=== PATIENT | male | born 1935 | race Caucasian/White ===

== ENCOUNTER 2018-08-08 10:21 | Emergency (ER) | payer OTHER ==
[~2018-08-08] VITALS: Ht 172.7 cm; Wt 68.0 kg
[2018-08-08 11:30] LABS: Urine Bacteria NONE SEEN /hpf (None Seen); Urine Blood 2+ /uL (Negative); Urine Specific Gravity 1.006 (1.001-1.035); Urine WBC 2 /hpf (0 - 3)
[2018-08-08 11:42] LABS: Basophils # (auto) 0.1 uL; Basophils % (auto) 0.8 % (0.0-2.0); Eosinophils # (auto) 0.4 uL; Eosinophils % (auto) 4.5 % (0.0-7.0); Hematocrit 42.4 % (41.0-53.0); Hemoglobin 14.4 g/dL (13.5-17.5); Lymphocytes # (auto) 1.1 uL; Lymphocytes % (auto) 12.1 % (10.0-50.0); Mean Corpuscular Hemoglobin 31.1 pg (28.0-32.0); Mean Corpuscular Hgb Conc. 33.9 g/dL (32.0-36.0); Mean Corpuscular Volume 91.9 fL (80.0-100.0); Monocytes # (auto) 0.6 uL; Monocytes % (auto) 7.3 % (0.0-12.0); Neutrophils # (auto) 6.6 uL; Neutrophils % (auto) 75.3 % (37.0-80.0); Platelet Count (auto) 226 10^3/uL (140-450); Red Blood Cells 4.62 10^6/uL (4.5-5.90); Red Cell Distribution Width 14.9 % (11.8-14.3); White Blood Cell 8.8 10^3/uL (4.4-10.8)
[2018-08-08 12:09] LABS: Albumin 3.9 g/dL (3.4-5.0); Calcium 9.6 mg/dL (8.5-10.1); Potassium 4.4 mmol/L (3.5-5.1)
[2018-08-08 12:11] LABS: Bilirubin, Total 0.5 mg/dL (0.2-1.0); Total Protein 7.8 g/dL (6.4-8.2)
[2018-08-08] MEDS ORDERED: SODIUM CHLORIDE 0.9% 1,000 ML IV ONE (12:16)
[2018-08-08] MEDS ORDERED: TAMSULOSIN HYDROCHLORIDE 0.4 MG CAP PO ONE (12:30)
[2018-08-08 14:57] VITALS: BP 117/54
[2018-08-08 14:57] LABS: Magnesium 2.5 mg/dL (1.6-2.6)
== END 2018-08-08 15:43 | disposition home or self-care (01) ==
LOC: ER 10:21
DX: R33.9 Retention of urine, unspecified (principal); R31.9 Hematuria, unspecified; E03.9 Hypothyroidism, unspecified; E11.9 Type 2 diabetes mellitus without complications; I10 Essential (primary) hypertension; Z90.89 Acquired absence of other organs
CPT/HCPCS: 36415; 71046; 80053; 81001; 83690; 83735; 84443; 85025; 93005

== ENCOUNTER → 2019-02-20 | Emergency (ER) | payer OTHER | END | disposition left against medical advice (07) | LOC: ER 19:23 | DX: R32 Unspecified urinary incontinence (principal); Z53.21 Procedure and treatment not carried out due to patient leaving prior to being seen by health care provider ==

== ENCOUNTER 2019-12-27 15:55 | Inpatient (IN) | payer OTHER ==
[~2019-12-27] VITALS: Ht 172.7 cm; Wt 61.0 kg
[2019-12-27 16:47] LABS: Basophils # (auto) 0 10 ^3/uL (0-0.2); Basophils % (auto) 0.2 % (0.0-2.0); Eosinophils # (auto) 0 10 ^3/uL (0-0.8); Hematocrit 36.5 % (41.0-53.0); Hemoglobin 12.3 g/dL (13.5-17.5); Lymphocytes # (auto) 0.1 10 ^3/uL (0.4-5.4); Lymphocytes % (auto) 0.9 % (10.0-50.0); Mean Corpuscular Hemoglobin 30.1 pg (28.0-32.0); Mean Corpuscular Hgb Conc. 33.8 g/dL (32.0-36.0); Mean Corpuscular Volume 88.9 fL (80.0-100.0); Monocytes # (auto) 0 10 ^3/uL (0-1.3); Monocytes % (auto) 0.2 % (0.0-12.0); Neutrophils # (auto) 11.4 10 ^3/uL (1.6-8.6); Neutrophils % (auto) 98.7 % (37.0-80.0); Platelet Count (auto) 227 10^3/uL (140-450); Red Blood Cells 4.11 10^6/uL (4.5-5.90); Red Cell Distribution Width 15.6 % (11.8-14.3); White Blood Cell 11.5 10^3/uL (4.4-10.8)
[2019-12-27 17:05] LABS: Albumin 2.9 g/dL (3.4-5.0); Calcium 8.4 mg/dL (8.5-10.1)
[2019-12-27 17:09] LABS: Bilirubin, Total 0.7 mg/dL (0.2-1.0); Total Protein 7.3 g/dL (6.4-8.2)
[2019-12-27] MEDS ORDERED: ASPirin-EC 81 mg tab PO ONE (18:15)
[2019-12-27] MEDS ORDERED: cefTRIAXone 1GM/50ML D5W 50 ML IV ONE (18:15)
[2019-12-27] MEDS ORDERED: ACETAMINOPHEN 325 MG TAB PO ONE (18:45)
[2019-12-27 19:05] LABS: INR 1.22 (0.9-1.15); Partial Thromboplastin Time 30.2 sec (23.64-32.05)
[2019-12-27] MEDS ORDERED: FUROSEMIDE 20 MG/2 ML VIAL IV ONE (19:15)
[2019-12-27] MEDS ORDERED: NITROGLYCERIN 0.2MG/HR TOPICAL PATCH TD ONE (19:15)
[2019-12-27] MEDS ORDERED: hydrALAZINE HCL 20 MG/ML VL IV PRN (19:15)
[2019-12-27] MEDS ORDERED: AZITHROMYCIN 250 MG TAB PO ONE (19:15)
[2019-12-27] MEDS ORDERED: ACETAMINOPHEN 500 MG TAB PO PRN (19:15)
[2019-12-27] MEDS ORDERED: MORPHINE SULF INJ 2 MG/ML SYRINGE 1ML IV PRN ×2 (19:15)
[2019-12-27] MEDS ORDERED: ONDANSETRON HCL 4 MG/2 ML VIAL IV PRN (19:15)
[2019-12-27] MEDS ORDERED: NITROGLYCERIN 0.4 MG SL TAB SL PRN (19:15)
[2019-12-27] MEDS ORDERED: DEXTROSE (50%) 50ML SYRG IV PRN (19:15)
[2019-12-27 19:44] LABS: Lactic Acid w/Reflex 4.4 mmol/L (0.4-2.0)
[2019-12-27 19:53] LABS: CRP High Sensitivity 7.76 mg/dL (< 0.3)
[2019-12-27 20:13] VITALS: BP 130/70
[2019-12-27] MEDS ORDERED: IOHEXOL 350 MG/ML 100ML IJ ONE (21:07)
[2019-12-27] MEDS: InsuLIN REG 1unit/0.01ml Soln (100units/ml) SC SCH (22:53)
[2019-12-27] MEDS: METOPROLOL TARTRATE 25 MG TAB PO SCH (22:53)
[2019-12-27] MEDS: ATORVASTATIN 20 MG TAB PO SCH (22:53)
[2019-12-27] MEDS: ACCU-CHEK COMFORT CURVE STRIP VI SCH (22:54)
[2019-12-28] VITALS (41 sets, daily range): BP systolic 60–143; BP diastolic 37–76
[2019-12-28] MEDS: IPRATROPIUM BROM 0.5 MG/2.5ML INH SOL NEB PRN (01:35)
[2019-12-28] MEDS: LEVALBUTEROL HCL 1.25 MG/3 ML NEB NEB SCH ×3 (01:35→06:00)
[2019-12-28] MEDS ORDERED: ENOXAPARIN SOD 100 MG/1 ML SYRINGE SC ONE (02:45)
[2019-12-28] MEDS ORDERED: ACETAMINOPHEN 325 MG TAB PO ONE (06:00)
[2019-12-28] MEDS ORDERED: IPRATROPIUM BROM 0.5 MG/2.5ML INH SOL ONE (06:31)
[2019-12-28 06:59] LABS: Hematocrit 35.3 % (41.0-53.0); Hemoglobin 11.6 g/dL (13.5-17.5); Mean Corpuscular Hemoglobin 29.3 pg (28.0-32.0); Mean Corpuscular Hgb Conc. 32.8 g/dL (32.0-36.0); Mean Corpuscular Volume 89.3 fL (80.0-100.0); Platelet Count (auto) 159 10^3/uL (140-450); Red Blood Cells 3.95 10^6/uL (4.5-5.90)
[2019-12-28 07:10] LABS: Basophils % (manual) 0 (0.0-2.0); Blast Cells 0; Eosinophils % (manual) 0 (0-7); Metamyelocytes % 0; Myelocytes % 0; Promyelocytes % 0; Reactive Lymphocytes 0
[2019-12-28 07:15] LABS: INR 1.4 (0.9-1.15); Partial Thromboplastin Time 43.4 sec (23.64-32.05)
[2019-12-28] MEDS ORDERED: LEVALBUTEROL HCL 1.25 MG/3 ML NEB NEB PRN (07:15)
[2019-12-28 07:17] LABS: BUN/Creatinine Ratio 27.8; Calcium 8.4 mg/dL (8.5-10.1); Potassium 3.5 mmol/L (3.5-5.1)
[2019-12-28] MEDS ORDERED: ALBUMIN 5% 250 ML IV ONE (07:30)
[2019-12-28 07:43] LABS: Band Neutrophils % (manual) 4; Lymphocytes % (manual) 3 (10.0-50.0); Monocytes % (manual) 5 (0-12)
[2019-12-28] MEDS: ACCU-CHEK COMFORT CURVE STRIP VI SCH ×4 (08:08→21:53)
[2019-12-28] MEDS: NOREPINEPHRINE 8 MG/250ML KIT 250 ML IV SCH ×2 (08:24→22:42)
[2019-12-28] MEDS: InsuLIN REG 1unit/0.01ml Soln (100units/ml) SC SCH ×4 (08:43→21:54)
[2019-12-28] MEDS: METOPROLOL TARTRATE 25 MG TAB PO SCH ×2 (10:00→22:00)
[2019-12-28] MEDS: LISINOPRIL 10 MG TAB PO SCH (10:00)
[2019-12-28] MEDS: cefTRIAXone 1GM/50ML D5W 50 ML IV SCH (10:05)
[2019-12-28] MEDS: SODIUM CHLORIDE 0.9% 1,000 ML IV SCH (10:05)
[2019-12-28] MEDS: ASPirin-EC 81 mg tab PO SCH (10:43)
[2019-12-28] MEDS: AZITHROMYCIN 250 MG TAB PO SCH (10:43)
[2019-12-28] MEDS: FAMOTIDINE 20 MG TAB PO SCH (10:43)
--- NOTE | 2019-12-28 11:20 | NUR ---
PT RECEIVED ON UNIT PT IS AWAKE AND ALERT X 4:PERSON, PLACE, TIME, SITUATION. PT DOES NOT HAVE ASHBY CATHETER IN DUE TO UNSUCCESSFUL ATTEMPTS PER ER. WILL TRY TO INSERT CATHETER. VS: 98.1 F TEMP, HR 88, RR 25, BP 111/58, 95%O2SAT ON 4L NASAL CANULA. BOWEL SOUNDS ACTIVE, LUMG SOUNDS WITH CRACKLES AND DIMINISHED IN ALL LUNG BLAKE, PULSES PALPABLE IN ALL EXTREMITIES, CAP REFILL LESS THAN 3 SECONDS, PUPILS 2 BRISK AND REACTIVE. BED IN LOWEST POSITION, CALL LIGHT WITHIN REACH. NO S/S OF DISTRESS. NO CONCERNS OR QUESTIONS AT THIS TIME
--- NOTE | 2019-12-28 12:25 | NUR ---
DR. PAULINO CALLED FOR ELEVATED TROPONIN
--- NOTE | 2019-12-28 12:40 | NUR ---
CONVEYOR CONSOLE OPERATOR AT BEDSIDE
--- NOTE | 2019-12-28 12:40 | NUR ---
DR. PAULINO AT BEDSIDE ORDERS RECEIVED
--- NOTE | 2019-12-28 15:25 | NUR ---
DR. CHE AT BEDSIDE ORDERS RECEIVED
--- NOTE | 2019-12-28 16:30 | NUR ---
RHYTHM CHANGE EKG DONE. AUGUSTO OCHOA
--- NOTE | 2019-12-28 16:40 | NUR ---
SCOTT OCHOA RETURNED CALL. ORDERS RECEIVED
--- NOTE | 2019-12-28 17:00 | NUR ---
CUIDET CATHETER INSERTION ATTEMPT UNSUCCESSFUL. COULD NOT ADVANCE. SMALL AMOUNT OF BLOOD FROM URETHRAL OPENING. WILL CONTINUE TO MONITOR AND LET PHYSICIAN KNOW.
--- NOTE | 2019-12-28 17:02 | NUR ---
SWALLOW EVALUATED. PATIENT HAS ONE SINGLE TOOTH LOWER, NO DENTITION UPPER. PATIENT ABLE TO TOLERATE PUREE DIET TEXTURE WITH NECTAR THICKENED LIQUIDS WITH NO OVERT SIGNS OR SYMPTOMS OF ASPIRATION. PATIENT COUGHED ON TRIAL OF THIN LIQUIDS. NURSING NOTIFIED.
[2019-12-28] MEDS ORDERED: AMIODARONE HCL 150 MG in D5W 5% 100 ML IV ONE (17:15)
--- NOTE | 2019-12-28 18:15 | NUR ---
Respiratory note: PT ASSESSED FOR PRN MED NEB TX. HR 107, RR 20, SPO2 96% ON 4L NC. NO SIGNS OF ANY RESPIRATORY DISTRESS NOTED. ADVISED PT TO CALL IF TX IS NEEDED.
--- NOTE | 2019-12-28 18:30 | NUR ---
BUFFING TURNER AND COUNTER GABRIELA AWARE OF ELEVATED TROPONIN
[2019-12-28] MEDS: FUROSEMIDE 20 MG/2 ML VIAL IV SCH (18:31)
--- NOTE | 2019-12-28 18:40 | NUR ---
SCOTT OCHOA AT BEDSIDE ORDERS RECEIVED
--- NOTE | 2019-12-28 18:40 | NUR ---
ASHBY CATHETER ATTEMPT BY PAPER CUTTER GABRIELA NOT ABLE TO INSERT WILL PLACE UROLOGY CONSULT
--- NOTE | 2019-12-28 19:00 | NUR ---
Opening note assumed care of patient at this time. Report received from day shift rn. POC reviewed. Head to toe assessment complete, see intervention spreadsheet for complete details. Received pt alert and oriented, able to follow commands. IV sites benign.Pt denies pain. VSS. Received pt in A-fib/flutter. Received pt on levophed at 12 mcg. Bed locked and in lowest position. Safety precautions in place. Will monitor pt carefully.
--- NOTE | 2019-12-28 19:35 | NUR ---
CLOSING NOTE SHIFT REPORT GIVEN AND CARE ENDORSED TO TATIANNA BALLARD
--- NOTE | 2019-12-28 19:35 | NUR ---
Dr Franklin at bedside
--- NOTE | 2019-12-28 20:15 | NUR ---
Attempt to place garcia Bladder scanner showed approx. 400 cc of urine. Unable to place garcia due to resistance and trauma to area. Urology consult placed. Will continue to monitor.
[2019-12-28] MEDS: ATORVASTATIN 20 MG TAB PO SCH (21:53)
[2019-12-28] MEDS: ENOXAPARIN SOD 80 MG/0.8ML SYRINGE SC SCH (22:06)
--- NOTE | 2019-12-28 23:51 | NUR ---
Pt urinating in chucks around groin area. Very concentrated, hematuria noted.
[2019-12-29] VITALS (57 sets, daily range): BP systolic 90–137; BP diastolic 46–79
[2019-12-29] MEDS: SODIUM CHLORIDE 0.9% 1,000 ML IV SCH ×3 (01:13→14:50)
--- NOTE | 2019-12-29 02:02 | NUR ---
Bed bath Pt given complete bed bath with linen change. Pt tolerated well. Pt able to assist with turns. VSS. pt denies pain. Will continue with care.
[2019-12-29 04:02] LABS: Mean Corpuscular Hemoglobin 29.6 pg (28.0-32.0)
[2019-12-29 04:03] LABS: Hematocrit 33.2 % (41.0-53.0); Mean Corpuscular Hgb Conc. 33.2 g/dL (32.0-36.0); Mean Corpuscular Volume 89.1 fL (80.0-100.0); Platelet Count (auto) 111 10^3/uL (140-450); Red Blood Cells 3.73 10^6/uL (4.5-5.90); Red Cell Distribution Width 16.1 % (11.8-14.3)
[2019-12-29 04:17] LABS: Calcium 7.9 mg/dL (8.5-10.1); Potassium 3.6 mmol/L (3.5-5.1)
[2019-12-29 04:20] LABS: BUN/Creatinine Ratio 33.9
[2019-12-29 04:24] LABS: White Blood Cell 31.9 10^3/uL (4.4-10.8)
[2019-12-29 04:26] LABS: Basophils % (manual) 0 (0.0-2.0); Blast Cells 0; Eosinophils % (manual) 0 (0-7); Metamyelocytes % 0; Myelocytes % 0; Promyelocytes % 0; Reactive Lymphocytes 0
[2019-12-29] MEDS: FUROSEMIDE 20 MG/2 ML VIAL IV SCH (06:00)
[2019-12-29 06:01] LABS: Band Neutrophils % (manual) 34; Monocytes % (manual) 3 (0-12)
[2019-12-29 06:03] LABS: Lymphocytes % (manual) 6 (10.0-50.0)
[2019-12-29] MEDS: InsuLIN REG 1unit/0.01ml Soln (100units/ml) SC SCH ×4 (07:00→22:10)
[2019-12-29] MEDS: ACCU-CHEK COMFORT CURVE STRIP VI SCH ×4 (07:00→22:09)
--- NOTE | 2019-12-29 07:10 | NUR ---
OPENING NOTE SHIFT REPORT GET BACK AND ASSUMED CARE OF PT FROM TATIANNA BALLARD
[2019-12-29] MEDS: cefTRIAXone 1GM/50ML D5W 50 ML IV SCH (08:33)
--- NOTE | 2019-12-29 10:00 | NUR ---
DR. CHE AT BEDSIDE ORDERS RECEIVED
[2019-12-29] MEDS: ASPirin-EC 81 mg tab PO SCH (10:01)
[2019-12-29] MEDS: FAMOTIDINE 20 MG TAB PO SCH (10:02)
[2019-12-29] MEDS: AZITHROMYCIN 250 MG TAB PO SCH (10:02)
[2019-12-29] MEDS: METOPROLOL TARTRATE 25 MG TAB PO SCH ×2 (10:02→22:00)
[2019-12-29] MEDS: ENOXAPARIN SOD 80 MG/0.8ML SYRINGE SC SCH ×2 (10:02→22:09)
[2019-12-29] MEDS: LISINOPRIL 10 MG TAB PO SCH (10:09)
[2019-12-29] MEDS ORDERED: ERTAPENEM SOD INJ 0.5 GM in SODIUM CHL 0.9% 50 ML IV ONE (10:30)
--- NOTE | 2019-12-29 11:00 | NUR ---
MATERIAL CONTROL ASSOCIATE AT BEDSIDE TO DO KIDNEY ULTRASOUND
[2019-12-29] MEDS: NICOTINE 14 MG/24HR TOPICAL PATCH TD SCH (11:03)
--- NOTE | 2019-12-29 12:50 | NUR ---
BLADDER SCAN DONE SHOWS GREATER THAN 200ML. WILL ATTEMPT TO TRY TO STRAIGHT CATH.
--- NOTE | 2019-12-29 13:00 | NUR ---
STRAIGHT CATH ATTEMPTED BUT WAS UNSUCCESSFUL. WILL PLACE CONDOM CATH AT TIS TIME
--- NOTE | 2019-12-29 13:00 | NUR ---
CONDOM CATH PLACED SO THAT WE CAN TRY TO GET SOME KIND OF URINE OUTPUT FROM PATIENT. WILL CONTINUE TO MONITOR
--- NOTE | 2019-12-29 14:46 | NUR ---
WOUND CARE NOTE: Wound care into see patient per wound care request regarding low Amando score of 12 and skin integrity issue that are noted present on admission. Bedside nurse took photograph of patient's skin issue upon admission for reference. Patient is 84 years old male with admitting diagnosis of Acute Hypoxic Resp Failure. Patient is resting in ICU bed in Rm. 102. Patient is awake, alert and able to verbalize needs and follow direction. Patient is in no stated pain at this time and he appears to be in no pain using Ashraf Valverde Faces Pain Scale. Skin assessment done with the assistance of patient's nurse, ELIO Che. Noted 0.6x0.5cm dry, intact scabbed abrasion to patient's L elbow, gloria wound is bright red, purple ecchymosis, no drainage/odor noted,left open to air. Patient states he does not remember how he got the scab to his left elbow. Intact pink scar tissue noted to his Rt lower buttock with mild redness but skin blanches quickly. Patient is incontinent of urine and wet the care pad. Gloria care given and applied Z Guard cream. New disposable care pad placed. Repositioned patient for comfort facing his right side, redistributed pressure points with pillows. Patient tolerated well. RECOMMENDATION: Nursing to continue with BID/PRN cleaning and application Z Guard cream to sacral, buttocks per MD order, frequent turning and repositioning schedule as condition permits, redistribute pressure points with pillows,elevate heels on pillows,frequent gloria check/care,keep clean and dry, continue monitoring by wound care while Amando score is <18. Addendum: 12/29/19 at 1549 by Pita Pike RN Amended: Links added.
[2019-12-29] MEDS ORDERED: OMEP-260 PO (16:49)
[2019-12-29] MEDS ORDERED: DOCU-94 PO (16:49)
[2019-12-29] MEDS ORDERED: LEVO25TA6 PO (16:49)
[2019-12-29] MEDS ORDERED: GABA100C9 PO (16:49)
[2019-12-29] MEDS ORDERED: SIMV-8 PO (16:49)
[2019-12-29] MEDS ORDERED: ENAL2.5T PO (16:49)
[2019-12-29] MEDS ORDERED: MELO1TAB73 PO (16:49)
--- NOTE | 2019-12-29 16:58 | NUR ---
assessment Patient is a 84 year old male who is alert and oriented. Per patients sherie Fajardo prior to admission patient lived home with family and functioned with assistance. Patient will return home with family on discharge. Patient has a fww for home use. Patients PCP is Dr Blue. Patient has a consult for home health for PT and safety. Patients sherie Fajardo agrees to home health. Patient does not has an advanced directive or POA. Scotty verbalized understanding and agreed to discharge plan home. Addendum: 12/29/19 at 1702 by Ly ESCOBEDO Amended: Links added.
--- NOTE | 2019-12-29 19:30 | NUR ---
Opening Shift Note Received pt laying in bed in semi-fowlers position. Pt alert and oriented times four. pt incontinent of urine and stool. Per report, multiple attempts have been made to place garcia and unable to succeed. No condom cath on pt per assessment. Full assessment done see interventions. Pt on 2 lpm nasal cannula. no s/s of distress noted at this time. Call light within reach. bed locked in lowest position. VSS.
--- NOTE | 2019-12-29 19:39 | NUR ---
CLOSING NOTE SHIFT REPORT GIVEN AND CARE ENDORSED TO KWAKU BALLARD
--- NOTE | 2019-12-29 19:55 | NUR ---
Respiratory note: PT RECIEVED ON NC4L. TITRATED TO 3LPM, PT TOLERATING WELL. PT IN NO RESP DISTRESS AT THIS TIME. PT AWAKE AND ALERT. SPO2 97%, HR 86, RR 22. BS CLR IN UPPER LOBES AND DIMINISHED WITH FAINT CRACKLES AT BASES. NO PRN TX INDICATED AT THIS TIME. WILL CONTINUE TO MONITOR PT T/O SHIFT.
--- NOTE | 2019-12-29 20:30 | NUR ---
ELIMINATION cleansed pt of urine and stool. New chucks applied. Barrier cream applied to skin to keep skin integrity intact from constant exposure to moisture.
[2019-12-29] MEDS: MEROPENEM 1GM IVPB 100 ML IV SCH (22:08)
[2019-12-29] MEDS: ATORVASTATIN 20 MG TAB PO SCH (22:09)
[2019-12-30] VITALS (13 sets, daily range): BP systolic 104–136; BP diastolic 52–78
[2019-12-30 03:47] LABS: Basophils # (auto) 0 10 ^3/uL (0-0.2); Basophils % (auto) 0.2 % (0.0-2.0); Eosinophils # (auto) 0.2 10 ^3/uL (0-0.8); Eosinophils % (auto) 1.3 % (0.0-7.0); Hematocrit 33.7 % (41.0-53.0); Lymphocytes # (auto) 0.7 10 ^3/uL (0.4-5.4); Mean Corpuscular Hemoglobin 29.1 pg (28.0-32.0); Mean Corpuscular Hgb Conc. 32.8 g/dL (32.0-36.0); Mean Corpuscular Volume 88.8 fL (80.0-100.0); Monocytes # (auto) 0.6 10 ^3/uL (0-1.3); Monocytes % (auto) 3.1 % (0.0-12.0); Neutrophils # (auto) 16.4 10 ^3/uL (1.6-8.6); Neutrophils % (auto) 91.4 % (37.0-80.0); Platelet Count (auto) 104 10^3/uL (140-450); Red Blood Cells 3.79 10^6/uL (4.5-5.90); Red Cell Distribution Width 16.3 % (11.8-14.3)
[2019-12-30 04:08] LABS: BUN/Creatinine Ratio 44.8; Calcium 7.6 mg/dL (8.5-10.1); Potassium 4.2 mmol/L (3.5-5.1)
--- NOTE | 2019-12-30 05:00 | NUR ---
CARES PT INCONTINENT OF URINE AND BM THROUGHOUT THE NIGHT. CONTINUOUSLY CHANGED AND CLEANED. BARRIER CREAM APPLIED TO SKIN. PT TOLERATED WELL. NO COMPLAINTS OF PAIN. NO S/S OF DISTRESS.
[2019-12-30] MEDS: InsuLIN REG 1unit/0.01ml Soln (100units/ml) SC SCH ×4 (06:22→21:06)
[2019-12-30] MEDS: ACCU-CHEK COMFORT CURVE STRIP VI SCH ×4 (06:22→21:06)
--- NOTE | 2019-12-30 07:30 | NUR ---
REPORT REPORT RECEIVED FROM MARK RNKWAKU. BEDSIDE CHECK DONE AND PT STABLE WITH NO C/O PAIN.
[2019-12-30] MEDS: NOREPINEPHRINE 8 MG/250ML KIT 250 ML IV SCH (08:00)
--- NOTE | 2019-12-30 08:25 | NUR ---
ASSESSMENT WOKE PT FOR ASSESSMENT. A/O X4, WEAK BUT ABLE TO HELP TURN IN BED. MOVES ALL EXTREMITIES AND FOLLOWS SIMPLE COMMANDS. LUNGS CLEAR AND DIMINISHED THROUGHOUT. O2 AT 3 L/M VIA NC WITH O2 SAT OF 98%. TELE SR [address] ELEVATION IN LEAD 1. PALPABLE PULSES TO ALL EXTREMITIES. ABD SOFT WITH + BOWEL SOUNDS. INCONTINENT OF URINE AND SMALL BROWN SM. PERICARE GIVEN AND CAIR PAD CHANGED. APPLIED Z GUARD AND PROTECTIVE CREAM TO SCROTUM AND MAKENZIE ANAL AREA TO PROTECT SKIN. PROTECTIVE OPTIFOAM DRESSING TO SACRUM, SKIN UNDER CLEAR WITH OLD SCAR TO THE RIGHT BUTTOCK. ALSO WITH SMALL SCAB TO THE LEFT ELBOW. TURNED FOR COMFORT TO HIS RIGHT SIDE. RAILS UP X4 AND BED IN LOW POSITION FOR PT SAFETY. CONTINUE TO MONITOR.
[2019-12-30] MEDS: SODIUM CHLORIDE 0.9% 1,000 ML IV SCH (09:22)
--- NOTE | 2019-12-30 09:36 | NUR ---
MD/PHONE PAGED AND SPOKE WITH DR CHE TO NOTIFY OF PHARMACY CONCERNS REGARDING DROPPING PLATELET COUNT, 104 TODAY, AND PT ON LOVENOX 70MG SQ BID. ORDER RECEIVED TO DISCONTINUE LOVENOX.
[2019-12-30] MEDS ORDERED: ERTAPENEM SOD INJ 0.5 GM in SODIUM CHL 0.9% 50 ML IV SCH (10:00)
[2019-12-30] MEDS: IPRATROPIUM BROM 0.5 MG/2.5ML INH SOL NEB PRN (10:16)
--- NOTE | 2019-12-30 10:30 | NUR ---
LATHE SETUP OPERATOR VISIT PT SEEN AND EXAMINED BY JANNA OCHOA NP. SHE DISCUSSED WITH THE PT THAT SHE IS SCHEDULING HIM FOR A CARDIOLYTE STRESS TEST TODAY. HELD THE PT'S SCHEDULED DOSE OD METOPROLOL PER LATHE SETUP OPERATOR.
[2019-12-30] MEDS: MEROPENEM 1GM IVPB 100 ML IV SCH ×2 (10:33→20:56)
[2019-12-30] MEDS: ASPirin-EC 81 mg tab PO SCH (10:33)
[2019-12-30] MEDS: FAMOTIDINE 20 MG TAB PO SCH (10:34)
[2019-12-30] MEDS: NICOTINE 14 MG/24HR TOPICAL PATCH TD SCH (10:39)
[2019-12-30] MEDS ORDERED: ALBUTEROL SULF 2.5 MG/0.5ML(0.5%) NEB SOLN NEB ONE (10:45)
[2019-12-30] MEDS ORDERED: ADENOSINE 51 MG in GIVE UN-DILUTED 0 ML IV STA (11:28)
--- NOTE | 2019-12-30 11:40 | NUR ---
RECEIVED REPORT FROM ELIO LOPEZ.
--- NOTE | 2019-12-30 11:40 | NUR ---
REPORT REPORT GIVEN TO RECEIVING RNYOSVANY.
[2019-12-30] MEDS: METOPROLOL TARTRATE 25 MG TAB PO SCH ×2 (12:00→20:52)
--- NOTE | 2019-12-30 12:00 | NUR ---
BONI BLACKMAN REP KAYLYNN SOLANOT MICK WOMACK, HERE AND SPOKE WITH THE PT AND HIS SON.
--- NOTE | 2019-12-30 12:05 | NUR ---
PT TRANSFERRED TO FLOOR BED AND CONNECTED TO TELE #20 AND PORTABLE O2 AT 3 L/M VIA NC. PT TRANSPORTED TO ROOM #245B BY CHRIS PABLO, TALISHA. PT ACCOMPANIED BY HIS SON.
--- NOTE | 2019-12-30 12:09 | NUR ---
PATIENT ARRIVED IN ROOM VIA HOSPITAL BED AT THIS TIME.
--- NOTE | 2019-12-30 12:20 | NUR ---
Faxed authorization request for [employer] Life Vest to [facility].
--- NOTE | 2019-12-30 19:40 | NUR ---
Opening Shift Note Assumed care of patient, awake and alert. No S/S of distress/SOB or pain. Instructed on POC and to call for assist PRN, will continue to monitor for changes Q1hr and PRN. Bed alarm on
[2019-12-30] MEDS: ATORVASTATIN 20 MG TAB PO SCH (20:52)
[2019-12-30] MEDS: HYDROcodone-ACET 5/325MG TAB PO PRN (20:53)
--- NOTE | 2019-12-30 20:53 | NUR ---
Pain Management Pt medicated for chronic 7/10 leg pain, medicated with norco per pt request. Will continue to monitor for pain relief
--- NOTE | 2019-12-30 22:16 | NUR ---
Respiratory note: PT RECIEVED ON NC3L. PT IS AWAKE AND RESPONSIVE. NO RESP DISTRESS NOTED. SPO2 95%, HR 82, RR 18, BS CLR T/O. NO PRN TX INDICATED AT THIS TIME. PT AWARE TO CALL FOR TX IF SOB/WHEEZING.
--- NOTE | 2019-12-31 03:54 | NUR ---
Patient linen change Patient given partial bath after urinary incontinence. Skin integrity assessed for any changes. Linens changed. Patient repositioned for comfort.
[2019-12-31 05:18] VITALS: BP 142/86
[2019-12-31] MEDS: ACCU-CHEK COMFORT CURVE STRIP VI SCH ×2 (05:54→17:12)
[2019-12-31] MEDS: InsuLIN REG 1unit/0.01ml Soln (100units/ml) SC SCH ×2 (05:55→17:14)
--- NOTE | 2019-12-31 07:30 | NUR ---
Opening Shift Note RECEIVED REPORT FROM NOC RN. Assumed care of patient, awake and alert. PATIENT ON OXYGEN AT 3 LPM VIA NASAL CANNULA WITH no S/S of distress/SOB or pain. BED IN LOWEST, LOCKED POSITION WITH SIDERAILS UP x2 AND CALL LIGHT WITHIN REACH. Instructed on POC and to call for assist PRN, will continue to monitor for changes Q1hr and PRN.
[2019-12-31 08:43] VITALS: BP 145/77
--- NOTE | 2019-12-31 09:47 | NUR ---
Respiratory note: ASSESSED PT FOR PRN BREATHING TX. NO RESPIRATORY DISTRESS NOTED OR STATED. PT IS AWAKE AND ALERT. PT IS ON 3 L NASAL CANNULA, SPO2 97%, HR 61. PT IS AWARE TO HAVE RT PAGED IF BREATHING TX IS NEEDED. WILL CONTINUE TO MONITOR PT.
[2019-12-31 10:05] LABS: Hematocrit 35.5 % (41.0-53.0); Hemoglobin 11.9 g/dL (13.5-17.5); Mean Corpuscular Hemoglobin 29.7 pg (28.0-32.0); Mean Corpuscular Hgb Conc. 33.4 g/dL (32.0-36.0); Mean Corpuscular Volume 88.9 fL (80.0-100.0); Platelet Count (auto) 101 10^3/uL (140-450); Red Blood Cells 3.99 10^6/uL (4.5-5.90); Red Cell Distribution Width 15.9 % (11.8-14.3); White Blood Cell 10.6 10^3/uL (4.4-10.8)
[2019-12-31 10:15] LABS: BUN/Creatinine Ratio 45.5; Calcium 8.6 mg/dL (8.5-10.1)
[2019-12-31 10:17] LABS: Band Neutrophils % (manual) 0; Basophils % (manual) 0 (0.0-2.0); Metamyelocytes % 0
[2019-12-31 10:18] LABS: Blast Cells 0; Myelocytes % 0; Promyelocytes % 0; Reactive Lymphocytes 0
[2019-12-31 10:24] LABS: Potassium 4.6 mmol/L (3.5-5.1)
[2019-12-31] MEDS: MEROPENEM 1GM IVPB 100 ML IV SCH (10:41)
[2019-12-31] MEDS: ASPirin-EC 81 mg tab PO SCH (10:41)
[2019-12-31] MEDS: FAMOTIDINE 20 MG TAB PO SCH (10:42)
[2019-12-31] MEDS: NICOTINE 14 MG/24HR TOPICAL PATCH TD SCH (10:42)
[2019-12-31] MEDS: METOPROLOL TARTRATE 25 MG TAB PO SCH (10:42)
[2019-12-31] MEDS: HYDROcodone-ACET 5/325MG TAB PO PRN (10:43)
[2019-12-31 10:56] LABS: Eosinophils % (manual) 1 (0-7); Lymphocytes % (manual) 8 (10.0-50.0); Monocytes % (manual) 6 (0-12)
--- NOTE | 2019-12-31 11:19 | NUR ---
PT 1st AM visit, patient stated he is in pain and wanted to take pain medication before ambulating. 2nd AM visit, patient just had the pain medication. Addendum: 12/31/19 at 1120 by SAMI ALFREDO PTT Amended: Links added.
[2019-12-31 13:00] VITALS: BP 115/61
[2019-12-31] MEDS ORDERED: BISACODYL 10 MG RECT SUPP PR ONE (16:00)
[2019-12-31 16:44] VITALS: BP 140/82
--- NOTE | 2019-12-31 17:48 | NUR ---
D/C Planning Per consult for SNF Placement. Faxed orders to [facility]. Placed followed up called to Carley with [facility] they will be looking for placement. SARAH Berrios advised me patient has been accepted to [facility] to room [address] accepting MD Dr. Deluca. Patient does not have transportation benefits. Spoke to patient at bedside regarding accepting facility and transportation. Informed patient he can pay for private transportation. Patient stated sherie Fajardo is willing to take patient to facility. ELIO Lopez was informed of d/c planning.
--- NOTE | 2019-12-31 17:59 | NUR ---
[facility] Ph:( [phone])
--- NOTE | 2019-12-31 18:30 | NUR ---
PT CHECKED FOR PRN TX. PT IS RESTING WITH NO ACUTE DISTRESS NOTED. TX IS NOT INDICATED. HR 70 RR 20 POX 97 ON 3LNC B/S CLEAR BUT DECREASED.
--- NOTE | 2019-12-31 19:55 | NUR ---
Discharge instructions given as ordered. All questions and concerns addressed. Patient verbalized understanding. Patient transported by son with all personal belongings on 3L NC, portable o2 loaned per report from John BALLARD by Minh Bonilla to be returned by son post transfer. No distress noted at time of departure. Pt transported to [facility] by son, transportation not covered by pt insurance.
[2020-01-01] MEDS ORDERED: FAMOTIDINE 20 MG TAB PO SCH (10:00)
== END 2019-12-31 19:55 | DRG 871 ==
LOC: ER 15:55 → EDBD 15:55 → TELE 15:56 → ICU WEST 12-28 10:46 → TELE-EAST 12-30 12:08
PROVIDERS: ADMIT Nurse Practitioner Acute Care; ATTEND Hospitalist
DX: A41.51 Sepsis due to Escherichia coli [E. coli] (principal); I21.4 Non-ST elevation (NSTEMI) myocardial infarction; J18.9 Pneumonia, unspecified organism; J96.01 Acute respiratory failure with hypoxia; R65.21 Severe sepsis with septic shock; N17.0 Acute kidney failure with tubular necrosis; I50.21 Acute systolic (congestive) heart failure; J44.1 Chronic obstructive pulmonary disease with (acute) exacerbation; E44.0 Moderate protein-calorie malnutrition; I42.0 Dilated cardiomyopathy; N13.2 Hydronephrosis with renal and ureteral calculous obstruction; I13.0 Hypertensive heart and chronic kidney disease with heart failure and stage 1 through stage 4 chronic kidney disease, or unspecified chronic kidney disease; J44.0 Chronic obstructive pulmonary disease with (acute) lower respiratory infection; B96.89 Other specified bacterial agents as the cause of diseases classified elsewhere; I25.10 Atherosclerotic heart disease of native coronary artery without angina pectoris; I48.0 Paroxysmal atrial fibrillation; N18.2 Chronic kidney disease, stage 2 (mild); N31.9 Neuromuscular dysfunction of bladder, unspecified; N40.0 Benign prostatic hyperplasia without lower urinary tract symptoms; E11.22 Type 2 diabetes mellitus with diabetic chronic kidney disease; E78.5 Hyperlipidemia, unspecified; F17.210 Nicotine dependence, cigarettes, uncomplicated; I25.2 Old myocardial infarction; Z79.4 Long term (current) use of insulin; Z90.79 Acquired absence of other genital organ(s); M54.5 Low back pain
CPT/HCPCS: 36415; 71045; 71275; 74176; 76775; 78452; 80048; 80053; 80061; 82962; 83036; 83605; 83735; 83880; 84443; 84484; 85007; 85025; 85027; 85379; 85610; 85730; 86141; 87040; 87077; 87081; 87186; 87804; 92610; 93005; 93017; 93306; 94640; 97116; 97163; 97530; G0378; J0153; J0696; J1335; J1815; J2185; J7060

== ENCOUNTER 2020-04-01 19:27 | Inpatient (IN) | payer OTHER ==
[~2020-04-01] VITALS: Ht 172.7 cm; Wt 122.9 kg
[~2020-04-01 19:27] MED LIST: DOCU-94 PO; ENAL2.5T PO; GABA100C9 PO; LEVO25TA6 PO; MELO1TAB73 PO; OMEP-260 PO; SIMV-8 PO
[2020-04-01] MEDS ORDERED: SODIUM CHLORIDE 0.9% 1,000 ML IV ONE (20:00)
[2020-04-01 20:50] LABS: Hematocrit 26.4 % (41.0-53.0); Hemoglobin 8.8 g/dL (13.5-17.5); Mean Corpuscular Hemoglobin 29.1 pg (28.0-32.0); Mean Corpuscular Hgb Conc. 33.2 g/dL (32.0-36.0); Mean Corpuscular Volume 87.7 fL (80.0-100.0); Platelet Count (auto) 457 10^3/uL (140-450); Red Blood Cells 3.01 10^6/uL (4.5-5.90); Red Cell Distribution Width 18.4 % (11.8-14.3); White Blood Cell 6.9 10^3/uL (4.4-10.8)
[2020-04-01 20:53] LABS: Band Neutrophils % (manual) 0; Basophils % (manual) 0 (0.0-2.0); Blast Cells 0; Promyelocytes % 0; Reactive Lymphocytes 0
[2020-04-01 21:04] LABS: Eosinophils % (manual) 1 (0-7); Lymphocytes % (manual) 19 (10.0-50.0); Metamyelocytes % 1; Monocytes % (manual) 10 (0-12); Myelocytes % 1
[2020-04-01 21:06] LABS: Albumin 2.4 g/dL (3.4-5.0); Calcium 8.5 mg/dL (8.5-10.1)
[2020-04-01 21:11] LABS: BUN/Creatinine Ratio 54.3; Bilirubin, Total 0.1 mg/dL (0.2-1.0); Total Protein 6.2 g/dL (6.4-8.2)
[2020-04-01] MEDS ORDERED: MORPHINE SULF INJ 2 MG/ML SYRINGE 1ML IV ONE (22:30)
[2020-04-01] MEDS ORDERED: ONDANSETRON HCL 4 MG/2 ML VIAL IV ONE (22:30)
[2020-04-01] MEDS ORDERED: cefTRIAXone 1GM/50ML D5W 50 ML IV ONE (23:30)
[2020-04-02] VITALS (17 sets, daily range): BP systolic 80–124; BP diastolic 34–59
[2020-04-02] MEDS ORDERED: MORPHINE SULF INJ 2 MG/ML SYRINGE 1ML IV ONE (02:00)
[2020-04-02] MEDS ORDERED: DEXTROSE (50%) 50ML SYRG IV PRN (04:45)
[2020-04-02] MEDS ORDERED: DOCUSATE SOD 100 MG CAP PO PRN (04:45)
[2020-04-02] MEDS ORDERED: ACETAMINOPHEN 325 MG TAB PO PRN (04:45)
[2020-04-02] MEDS ORDERED: HYDROcodone-ACET 5/325MG TAB PO PRN (04:45)
[2020-04-02] MEDS ORDERED: ONDANSETRON HCL 4 MG/2 ML VIAL IV PRN (04:45)
[2020-04-02] MEDS: SODIUM CHLORIDE 0.9% 1,000 ML IV SCH ×4 (04:59→23:33)
[2020-04-02 06:33] LABS: Hematocrit 20.7 % (41.0-53.0); Mean Corpuscular Hgb Conc. 33.3 g/dL (32.0-36.0); Mean Corpuscular Volume 87.2 fL (80.0-100.0); Platelet Count (auto) 318 10^3/uL (140-450); Red Blood Cells 2.38 10^6/uL (4.5-5.90); Red Cell Distribution Width 17.8 % (11.8-14.3)
[2020-04-02 06:45] LABS: Hemoglobin 6.9 g/dL (13.5-17.5)
[2020-04-02 06:47] LABS: Basophils % (manual) 0 (0.0-2.0); Blast Cells 0; Promyelocytes % 0; Reactive Lymphocytes 0
[2020-04-02 06:49] LABS: Potassium 4.2 mmol/L (3.5-5.1)
[2020-04-02 06:59] LABS: BUN/Creatinine Ratio 64.4; Calcium 7.6 mg/dL (8.5-10.1)
[2020-04-02 07:49] LABS: Band Neutrophils % (manual) 3; Eosinophils % (manual) 1 (0-7); Lymphocytes % (manual) 11 (10.0-50.0); Metamyelocytes % 3; Monocytes % (manual) 11 (0-12); Myelocytes % 2
[2020-04-02] MEDS: InsuLIN REG 1unit/0.01ml Soln (100units/ml) SC SCH ×4 (08:00→20:00)
[2020-04-02] MEDS: ACCU-CHEK COMFORT CURVE STRIP VI SCH ×4 (08:30→20:00)
[2020-04-02] MEDS: TAMSULOSIN HYDROCHLORIDE 0.4 MG CAP PO SCH (10:21)
[2020-04-02] MEDS ORDERED: INSLANTI SC (10:21)
[2020-04-02] MEDS: FINASTERIDE 5 MG TAB PO SCH (10:21)
[2020-04-02] MEDS ORDERED: BETH10TA2 PO (10:21)
[2020-04-02] MEDS ORDERED: METO25TA5 PO (10:21)
[2020-04-02] MEDS ORDERED: ATOR40TA52 PO (10:21)
[2020-04-02] MEDS ORDERED: CAR3125T PO (10:21)
[2020-04-02] MEDS ORDERED: INSREG3 SC (10:23)
[2020-04-02] MEDS ORDERED: OXYB5TAB61 PO (10:23)
[2020-04-02] MEDS: IRON SUCROSE COMPLEX 200 MG in SODIUM CHL 0.9% 100 ML IV SCH (12:00)
[2020-04-02] MEDS ORDERED: FUROSEMIDE 20 MG/2 ML VIAL IV ONE (12:15)
[2020-04-02] MEDS: MORPHINE SULF INJ 2 MG/ML SYRINGE 1ML IV PRN (12:34)
[2020-04-02 16:31] LABS: Urine Bacteria MOD /hpf (None Seen); Urine Blood 1+ /uL (Negative); Urine Mucus FEW (None Seen); Urine Specific Gravity 1.013 (1.001-1.035); Urine WBC 165 /hpf (0 - 3)
[2020-04-03] MEDS: ACCU-CHEK COMFORT CURVE STRIP VI SCH ×6 (00:46→21:37)
[2020-04-03] MEDS: InsuLIN REG 1unit/0.01ml Soln (100units/ml) SC SCH ×6 (00:50→21:37)
[2020-04-03 05:00] VITALS: BP 100/49
[2020-04-03 06:17] LABS: Basophils # (auto) 0 10 ^3/uL (0-0.2); Basophils % (auto) 0.5 % (0.0-2.0); Eosinophils # (auto) 0.2 10 ^3/uL (0-0.8); Eosinophils % (auto) 1.9 % (0.0-7.0); Hematocrit 26.3 % (41.0-53.0); Hemoglobin 8.9 g/dL (13.5-17.5); Mean Corpuscular Hemoglobin 30.4 pg (28.0-32.0); Mean Corpuscular Hgb Conc. 33.9 g/dL (32.0-36.0); Mean Corpuscular Volume 89.6 fL (80.0-100.0); Monocytes # (auto) 0.9 10 ^3/uL (0-1.3); Monocytes % (auto) 9.8 % (0.0-12.0); Neutrophils % (auto) 76.8 % (37.0-80.0); Nucleated Red Blood Cells % 0.2 %; Platelet Count (auto) 271 10^3/uL (140-450); Red Blood Cells 2.93 10^6/uL (4.5-5.90); Red Cell Distribution Width 17.3 % (11.8-14.3); White Blood Cell 9.1 10^3/uL (4.4-10.8)
[2020-04-03 06:27] LABS: BUN/Creatinine Ratio 47.7; Calcium 7.7 mg/dL (8.5-10.1); Potassium 3.5 mmol/L (3.5-5.1)
[2020-04-03 08:43] LABS: INR 1.08 (0.9-1.15)
[2020-04-03 09:00] VITALS: BP 103/43
[2020-04-03] MEDS: TAMSULOSIN HYDROCHLORIDE 0.4 MG CAP PO SCH (09:40)
[2020-04-03] MEDS: FINASTERIDE 5 MG TAB PO SCH (09:40)
[2020-04-03] MEDS: MORPHINE SULF INJ 2 MG/ML SYRINGE 1ML IV PRN ×3 (10:46→21:37)
[2020-04-03] MEDS: DOXYCYCLINE 100MG/250ML 250 ML IV SCH ×2 (11:45→21:38)
[2020-04-03] MEDS: IRON SUCROSE COMPLEX 200 MG in SODIUM CHL 0.9% 100 ML IV SCH (12:00)
[2020-04-03 13:00] VITALS: BP 110/51
[2020-04-03] MEDS: SODIUM CHLORIDE 0.9% 1,000 ML IV SCH (15:08)
[2020-04-03 17:00] VITALS: BP 95/47
[2020-04-03] MEDS ORDERED: LACTULOSE 20Gm/30ML SOLN PO SCH (18:00)
[2020-04-03] MEDS ORDERED: levoFLOXacin 500MG 100 ML IV SCH (21:00)
[2020-04-03] MEDS: LACTULOSE 20Gm/30ML SOLN PO PRN (21:38)
[2020-04-03 22:00] VITALS: BP 98/46
[2020-04-04] MEDS: MORPHINE SULF INJ 2 MG/ML SYRINGE 1ML IV PRN ×2 (02:43→20:14)
[2020-04-04] MEDS: SODIUM CHLORIDE 0.9% 1,000 ML IV SCH (04:09)
[2020-04-04 05:00] VITALS: BP 98/52
[2020-04-04] MEDS: ACCU-CHEK COMFORT CURVE STRIP VI SCH ×4 (06:49→22:57)
[2020-04-04] MEDS: InsuLIN REG 1unit/0.01ml Soln (100units/ml) SC SCH ×4 (06:49→23:00)
[2020-04-04 07:28] LABS: Basophils # (auto) 0 10 ^3/uL (0-0.2); Basophils % (auto) 0.5 % (0.0-2.0); Calcium 7.5 mg/dL (8.5-10.1); Eosinophils # (auto) 0.1 10 ^3/uL (0-0.8); Hematocrit 27.7 % (41.0-53.0); Hemoglobin 9.1 g/dL (13.5-17.5); Lymphocytes # (auto) 0.7 10 ^3/uL (0.4-5.4); Lymphocytes % (auto) 9.6 % (10.0-50.0); Mean Corpuscular Hemoglobin 29.6 pg (28.0-32.0); Mean Corpuscular Hgb Conc. 32.9 g/dL (32.0-36.0); Monocytes # (auto) 0.7 10 ^3/uL (0-1.3); Monocytes % (auto) 9.1 % (0.0-12.0); Neutrophils # (auto) 5.9 10 ^3/uL (1.6-8.6); Neutrophils % (auto) 78.8 % (37.0-80.0); Platelet Count (auto) 256 10^3/uL (140-450); Potassium 4.1 mmol/L (3.5-5.1); Red Blood Cells 3.08 10^6/uL (4.5-5.90); Red Cell Distribution Width 17.5 % (11.8-14.3); White Blood Cell 7.5 10^3/uL (4.4-10.8)
[2020-04-04 07:30] LABS: BUN/Creatinine Ratio 30.2
[2020-04-04 09:00] VITALS: BP 108/58
[2020-04-04] MEDS: FINASTERIDE 5 MG TAB PO SCH (10:20)
[2020-04-04] MEDS: LACTULOSE 20Gm/30ML SOLN PO PRN ×2 (10:20→16:54)
[2020-04-04] MEDS: TAMSULOSIN HYDROCHLORIDE 0.4 MG CAP PO SCH (10:20)
[2020-04-04 13:00] VITALS: BP 114/79
[2020-04-04 17:00] VITALS: BP 106/51
[2020-04-04] MEDS ORDERED: levoFLOXacin 250MG 50 ML IV SCH (21:00)
[2020-04-04 22:00] VITALS: BP 104/53
[2020-04-05] MEDS: MORPHINE SULF INJ 2 MG/ML SYRINGE 1ML IV PRN (01:37)
[2020-04-05 05:12] VITALS: BP 101/59
[2020-04-05 05:45] LABS: Hematocrit 25.6 % (41.0-53.0); Hemoglobin 8.6 g/dL (13.5-17.5)
[2020-04-05] MEDS: InsuLIN REG 1unit/0.01ml Soln (100units/ml) SC SCH ×3 (06:19→17:00)
[2020-04-05] MEDS: ACCU-CHEK COMFORT CURVE STRIP VI SCH ×3 (06:21→17:00)
[2020-04-05 09:00] VITALS: BP 102/54
[2020-04-05] MEDS: TAMSULOSIN HYDROCHLORIDE 0.4 MG CAP PO SCH (09:12)
[2020-04-05] MEDS: FINASTERIDE 5 MG TAB PO SCH (09:13)
[2020-04-05] MEDS: LACTULOSE 20Gm/30ML SOLN PO PRN (09:13)
[2020-04-05] MEDS ORDERED: CIPR-173 PO (09:58)
[2020-04-05] MEDS ORDERED: INSLANTI SC (09:58)
[2020-04-05] MEDS ORDERED: OXYB5TAB61 PO (09:58)
[2020-04-05] MEDS ORDERED: TAM04C PO (09:58)
[2020-04-05] MEDS ORDERED: LACT10SO3 PO (09:58)
[2020-04-05 10:39] VITALS: BP 102/54
[2020-04-05 13:00] VITALS: BP 106/65
[2020-04-05] MEDS ORDERED: cefTRIAXone 1GM/50ML D5W 50 ML IV ONE (16:15)
[2020-04-05 16:51] VITALS: BP 107/61
[2020-04-06] MEDS ORDERED: cefTRIAXone 1GM/50ML D5W 50 ML IV SCH (09:00)
== END 2020-04-05 17:01 | disposition home health service (06) | DRG 690 ==
LOC: ER 19:27 → OVERFLOW 19:28 → WEST WING 04-02 10:41
PROVIDERS: ADMIT Hospitalist; ATTEND Hospitalist
PROC: 30233N1 Transfusion of Nonautologous Red Blood Cells into Peripheral Vein, Percutaneous Approach (ICD-10-PCS; principal; 2020-04-02)
DX: N39.0 Urinary tract infection, site not specified (principal); I42.0 Dilated cardiomyopathy; N40.1 Benign prostatic hyperplasia with lower urinary tract symptoms; N13.8 Other obstructive and reflux uropathy; D64.9 Anemia, unspecified; R31.9 Hematuria, unspecified; R32 Unspecified urinary incontinence; E03.9 Hypothyroidism, unspecified; E78.5 Hyperlipidemia, unspecified; N35.919 Unspecified urethral stricture, male, unspecified site; R33.8 Other retention of urine; Z90.79 Acquired absence of other genital organ(s); I11.0 Hypertensive heart disease with heart failure; I25.9 Chronic ischemic heart disease, unspecified; K59.00 Constipation, unspecified; I50.9 Heart failure, unspecified; Z87.891 Personal history of nicotine dependence; E11.65 Type 2 diabetes mellitus with hyperglycemia
CPT/HCPCS: 36415; 36430; 51702; 70450; 71045; 74176; 80048; 80053; 80061; 81001; 82962; 83036; 83605; 83880; 84484; 85007; 85014; 85018; 85025; 85027; 85610; 86850; 86900; 86901; 86920; 87040; 87086; 87088; 87186; 93005; 93306; 96361; 96365; 96375; 97116; 97163; 97530; G0378; J0696; J1756; J1815; J1956; J2405

== ENCOUNTER 2020-04-08 09:26 | Inpatient (IN) | payer OTHER ==
[~2020-04-08] VITALS: Ht 177.8 cm; Wt 79.2 kg
[2020-04-08] VITALS (8 sets, daily range): BP systolic 94–105; BP diastolic 40–51
[~2020-04-08 09:26] MED LIST changes: +ATOR40TA52 PO; +BETH10TA2 PO; +CAR3125T PO; +CIPR-173 PO; +INSLANTI SC; +INSREG3 SC; +LACT10SO3 PO; -MELO1TAB73 PO; +METO25TA5 PO; -OMEP-260 PO; +OXYB5TAB61 PO; -SIMV-8 PO; +TAM04C PO
[2020-04-08 12:02] LABS: Red Blood Cells 1.66 10^6/uL (4.5-5.90)
[2020-04-08 12:04] LABS: Hematocrit 15.2 % (41.0-53.0); Mean Corpuscular Hemoglobin 29.1 pg (28.0-32.0); Mean Corpuscular Hgb Conc. 31.8 g/dL (32.0-36.0); Mean Corpuscular Volume 91.6 fL (80.0-100.0); Platelet Count (auto) 334 10^3/uL (140-450); Red Cell Distribution Width 18.3 % (11.8-14.3); White Blood Cell 11.3 10^3/uL (4.4-10.8)
[2020-04-08 12:11] LABS: Hemoglobin 4.8 g/dL (13.5-17.5)
[2020-04-08 12:12] LABS: Basophils % (manual) 0 (0.0-2.0); Blast Cells 0; Eosinophils % (manual) 0 (0-7); Metamyelocytes % 0; Myelocytes % 0; Promyelocytes % 0; Reactive Lymphocytes 0
[2020-04-08 12:29] LABS: Band Neutrophils % (manual) 1; Lymphocytes % (manual) 13 (10.0-50.0); Monocytes % (manual) 2 (0-12)
[2020-04-08 12:31] LABS: Albumin 1.9 g/dL (3.4-5.0); Calcium 7.8 mg/dL (8.5-10.1); Magnesium 2.5 mg/dL (1.6-2.6); Potassium 4.6 mmol/L (3.5-5.1)
[2020-04-08 12:36] LABS: BUN/Creatinine Ratio 62.5; Bilirubin, Total 0.2 mg/dL (0.2-1.0); Total Protein 5.3 g/dL (6.4-8.2)
[2020-04-08] MEDS ORDERED: NITROGLYCERIN 0.4 MG SL TAB SL PRN (16:30)
[2020-04-08] MEDS ORDERED: MORPHINE SULF INJ 2 MG/ML SYRINGE 1ML IV PRN (16:30)
[2020-04-08] MEDS ORDERED: SODIUM CHLORIDE 0.9% 1,000 ML IV SCH (16:30)
[2020-04-08] MEDS ORDERED: PANTOPRAZOLE 40 MG/10 ML VIAL INJ IV ONE (16:45)
[2020-04-08] MEDS ORDERED: ONDANSETRON HCL 4 MG/2 ML VIAL IV PRN (17:00)
[2020-04-08] MEDS ORDERED: DEXTROSE (50%) 50ML SYRG IV PRN (17:00)
[2020-04-08] MEDS ORDERED: LACTULOSE 20Gm/30ML SOLN PO PRN (17:00)
[2020-04-08 17:38] LABS: CRP High Sensitivity 3.22 mg/dL (< 0.3)
[2020-04-08] MEDS: InsuLIN REG 1unit/0.01ml Soln (100units/ml) SC SCH (18:00)
[2020-04-08] MEDS ORDERED: MORPHINE SULFATE 4 MG/ML SYR/VIAL IV ONE (20:15)
[2020-04-08] MEDS ORDERED: ONDANSETRON HCL 4 MG/2 ML VIAL IV ONE (20:15)
[2020-04-08] MEDS: PANTOPRAZOLE 40 MG TAB PO SCH (23:34)
[2020-04-08 23:56] LABS: Basophils # (auto) 0 10 ^3/uL (0-0.2); Eosinophils # (auto) 0 10 ^3/uL (0-0.8); Eosinophils % (auto) 0.1 % (0.0-7.0); White Blood Cell 11.5 10^3/uL (4.4-10.8)
[2020-04-08 23:57] LABS: Basophils % (auto) 0.1 % (0.0-2.0); Lymphocytes % (auto) 8.4 % (10.0-50.0); Mean Corpuscular Hemoglobin 29.2 pg (28.0-32.0); Mean Corpuscular Hgb Conc. 33.2 g/dL (32.0-36.0); Mean Corpuscular Volume 87.9 fL (80.0-100.0); Monocytes % (auto) 8.8 % (0.0-12.0); Neutrophils # (auto) 9.5 10 ^3/uL (1.6-8.6); Neutrophils % (auto) 82.6 % (37.0-80.0); Platelet Count (auto) 223 10^3/uL (140-450); Red Blood Cells 2.28 10^6/uL (4.5-5.90); Red Cell Distribution Width 18.3 % (11.8-14.3)
[2020-04-09] VITALS (12 sets, daily range): BP systolic 90–124; BP diastolic 39–54
[2020-04-09 00:10] LABS: INR 1.17 (0.9-1.15); Partial Thromboplastin Time 27.6 sec (23.64-32.05)
[2020-04-09 00:11] LABS: Hemoglobin 6.7 g/dL (13.5-17.5)
[2020-04-09] MEDS: MORPHINE SULF INJ 2 MG/ML SYRINGE 1ML IV PRN (03:06)
[2020-04-09] MEDS: InsuLIN REG 1unit/0.01ml Soln (100units/ml) SC SCH ×5 (07:11→23:22)
[2020-04-09 09:00] LABS: Basophils # (auto) 0 10 ^3/uL (0-0.2); Basophils % (auto) 0.2 % (0.0-2.0); Eosinophils # (auto) 0 10 ^3/uL (0-0.8); Eosinophils % (auto) 0.3 % (0.0-7.0); Hematocrit 30.7 % (41.0-53.0); Hemoglobin 10.1 g/dL (13.5-17.5); Lymphocytes # (auto) 0.8 10 ^3/uL (0.4-5.4); Lymphocytes % (auto) 6.1 % (10.0-50.0); Mean Corpuscular Hemoglobin 29.6 pg (28.0-32.0); Mean Corpuscular Volume 89.7 fL (80.0-100.0); Monocytes # (auto) 0.8 10 ^3/uL (0-1.3); Monocytes % (auto) 5.8 % (0.0-12.0); Neutrophils # (auto) 11.5 10 ^3/uL (1.6-8.6); Neutrophils % (auto) 87.6 % (37.0-80.0); Platelet Count (auto) 227 10^3/uL (140-450); Red Blood Cells 3.43 10^6/uL (4.5-5.90); Red Cell Distribution Width 16.4 % (11.8-14.3); White Blood Cell 13.1 10^3/uL (4.4-10.8)
[2020-04-09 09:18] LABS: Potassium 4.3 mmol/L (3.5-5.1)
[2020-04-09 09:25] LABS: Albumin 1.9 g/dL (3.4-5.0); Bilirubin, Total 0.9 mg/dL (0.2-1.0); Calcium 7.3 mg/dL (8.5-10.1); Total Protein 4.8 g/dL (6.4-8.2)
[2020-04-09] MEDS: PANTOPRAZOLE 40 MG TAB PO SCH ×2 (09:25→20:54)
[2020-04-09] MEDS: ACCU-CHEK COMFORT CURVE STRIP VI SCH ×4 (11:46→23:22)
[2020-04-09] MEDS ORDERED: SODIUM CHLORIDE 0.9% 1,000 ML IV SCH (14:45)
[2020-04-09] MEDS ORDERED: DOCUSATE SOD 100 MG CAP PO PRN (14:45)
[2020-04-09] MEDS ORDERED: POLYETHYLENE GLYCOL 17 GM PWDR PO ONE (14:45)
[2020-04-09] MEDS: TAMSULOSIN HYDROCHLORIDE 0.4 MG CAP PO SCH (18:19)
[2020-04-09] MEDS: GABAPENTIN 100 MG CAP PO SCH (20:53)
[2020-04-09] MEDS: ATORVASTATIN 20 MG TAB PO SCH (20:53)
[2020-04-09] MEDS ORDERED: MAGNESIUM CITRATE SOLUTION 300 ML BTL PO ONE (21:45)
[2020-04-09] MEDS ORDERED: GOLYTELY 4L KIT PO ONE (21:45)
[2020-04-10] VITALS (12 sets, daily range): BP systolic 93–116; BP diastolic 34–57
[2020-04-10 03:22] LABS: Calcium 6.9 mg/dL (8.5-10.1); Potassium 4.2 mmol/L (3.5-5.1)
[2020-04-10 03:24] LABS: BUN/Creatinine Ratio 65.5
[2020-04-10 03:28] LABS: Basophils # (auto) 0 10 ^3/uL (0-0.2); Basophils % (auto) 0.1 % (0.0-2.0); Eosinophils # (auto) 0.1 10 ^3/uL (0-0.8); Lymphocytes # (auto) 0.6 10 ^3/uL (0.4-5.4); Monocytes # (auto) 0.8 10 ^3/uL (0-1.3)
[2020-04-10 03:30] LABS: Eosinophils % (auto) 1.1 % (0.0-7.0); Hematocrit 20.5 % (41.0-53.0); Lymphocytes % (auto) 5.3 % (10.0-50.0); Mean Corpuscular Hemoglobin 30.1 pg (28.0-32.0); Mean Corpuscular Hgb Conc. 33.8 g/dL (32.0-36.0); Mean Corpuscular Volume 89.1 fL (80.0-100.0); Monocytes % (auto) 6.9 % (0.0-12.0); Neutrophils # (auto) 10.2 10 ^3/uL (1.6-8.6); Neutrophils % (auto) 86.6 % (37.0-80.0); Nucleated Red Blood Cells % 0.2 %; Platelet Count (auto) 172 10^3/uL (140-450); Red Cell Distribution Width 16.6 % (11.8-14.3); White Blood Cell 11.8 10^3/uL (4.4-10.8)
[2020-04-10] MEDS: ACCU-CHEK COMFORT CURVE STRIP VI SCH ×4 (06:26→23:14)
[2020-04-10] MEDS: LEVOTHYROXINE SODIUM 25 MCG TAB PO SCH (06:27)
[2020-04-10] MEDS: InsuLIN REG 1unit/0.01ml Soln (100units/ml) SC SCH ×4 (06:32→23:13)
[2020-04-10] MEDS: PANTOPRAZOLE 40 MG TAB PO SCH ×2 (09:41→20:52)
[2020-04-10] MEDS: OXYBUTYNIN CHL 5 MG TAB PO SCH (09:41)
[2020-04-10 09:43] LABS: Hematocrit 25.5 % (41.0-53.0); Hemoglobin 8.7 g/dL (13.5-17.5)
[2020-04-10] MEDS ORDERED: MIDAZOLAM HCL 5 MG/ML-1ML VIAL ONE (09:55)
[2020-04-10] MEDS ORDERED: fentaNYL CITRATE 100 MCG/2 ML VL ONE (09:55)
[2020-04-10] MEDS ORDERED: SODIUM CHLORIDE LOCK 10 ML ONE (09:55)
[2020-04-10] MEDS ORDERED: LIDOCAINE VISCOUS 2% 15ML UD ONE (09:55)
[2020-04-10] MEDS ORDERED: diphenhdrAMINE HCL 50 MG/1 ML VL ONE (09:55)
[2020-04-10] MEDS: TAMSULOSIN HYDROCHLORIDE 0.4 MG CAP PO SCH (17:29)
[2020-04-10] MEDS: SUCRALFATE 1 GM/10 ML ORAL SUSP PO SCH ×2 (17:29→20:51)
[2020-04-10] MEDS: ATORVASTATIN 20 MG TAB PO SCH (20:52)
[2020-04-10] MEDS: MORPHINE SULF INJ 2 MG/ML SYRINGE 1ML IV PRN (20:52)
[2020-04-10] MEDS: GABAPENTIN 100 MG CAP PO SCH (20:52)
[2020-04-11] VITALS (22 sets, daily range): BP systolic 93–139; BP diastolic 42–68
[2020-04-11] MEDS: MORPHINE SULF INJ 2 MG/ML SYRINGE 1ML IV PRN ×4 (00:50→21:33)
[2020-04-11 03:45] LABS: Basophils # (auto) 0 10 ^3/uL (0-0.2); Basophils % (auto) 0.1 % (0.0-2.0); Eosinophils # (auto) 0 10 ^3/uL (0-0.8); Neutrophils # (auto) 11.3 10 ^3/uL (1.6-8.6)
[2020-04-11 03:46] LABS: Eosinophils % (auto) 0.3 % (0.0-7.0); Hematocrit 14.8 % (41.0-53.0); Lymphocytes # (auto) 0.9 10 ^3/uL (0.4-5.4); Lymphocytes % (auto) 6.5 % (10.0-50.0); Mean Corpuscular Hemoglobin 30.3 pg (28.0-32.0); Mean Corpuscular Hgb Conc. 33.3 g/dL (32.0-36.0); Mean Corpuscular Volume 90.8 fL (80.0-100.0); Monocytes # (auto) 0.9 10 ^3/uL (0-1.3); Monocytes % (auto) 6.6 % (0.0-12.0); Neutrophils % (auto) 86.5 % (37.0-80.0); Nucleated Red Blood Cells % 0.1 %; Platelet Count (auto) 150 10^3/uL (140-450); Red Blood Cells 1.63 10^6/uL (4.5-5.90); Red Cell Distribution Width 15.7 % (11.8-14.3); White Blood Cell 13.1 10^3/uL (4.4-10.8)
[2020-04-11 04:01] LABS: Hemoglobin 4.9 g/dL (13.5-17.5)
[2020-04-11 04:07] LABS: Calcium 6.6 mg/dL (8.5-10.1); Potassium 3.5 mmol/L (3.5-5.1)
[2020-04-11 04:09] LABS: BUN/Creatinine Ratio 55.3
[2020-04-11] MEDS: InsuLIN REG 1unit/0.01ml Soln (100units/ml) SC SCH ×3 (06:00→17:54)
[2020-04-11] MEDS: ACCU-CHEK COMFORT CURVE STRIP VI SCH ×3 (06:00→17:20)
[2020-04-11] MEDS: SUCRALFATE 1 GM/10 ML ORAL SUSP PO SCH ×5 (06:28→21:33)
[2020-04-11] MEDS: LEVOTHYROXINE SODIUM 25 MCG TAB PO SCH (06:28)
[2020-04-11] MEDS: OXYBUTYNIN CHL 5 MG TAB PO SCH (10:37)
[2020-04-11] MEDS: PANTOPRAZOLE 40 MG/10 ML VIAL INJ IV SCH ×2 (11:45→21:33)
[2020-04-11] MEDS ORDERED: LIDOCAINE 2%HCL (LOCAL ANESTH.) INJ 20ML MDV ONE (12:55)
[2020-04-11] MEDS ORDERED: diphenhdrAMINE HCL 50 MG/1 ML VL ONE (13:59)
[2020-04-11] MEDS ORDERED: IODIXANOL 320MG/ML 100ML BTL IV ONE (14:21)
[2020-04-11 16:45] LABS: Hematocrit 33.5 % (41.0-53.0)
[2020-04-11] MEDS: TAMSULOSIN HYDROCHLORIDE 0.4 MG CAP PO SCH ×2 (17:54→18:00)
[2020-04-11] MEDS: GABAPENTIN 100 MG CAP PO SCH (21:33)
[2020-04-11] MEDS: ATORVASTATIN 20 MG TAB PO SCH (21:33)
[2020-04-11 22:32] LABS: Hematocrit 29.2 % (41.0-53.0); Hemoglobin 9.9 g/dL (13.5-17.5); Mean Corpuscular Hemoglobin 30.4 pg (28.0-32.0); Mean Corpuscular Hgb Conc. 34.1 g/dL (32.0-36.0); Mean Corpuscular Volume 89.1 fL (80.0-100.0); Platelet Count (auto) 139 10^3/uL (140-450); Red Blood Cells 3.28 10^6/uL (4.5-5.90); Red Cell Distribution Width 14.5 % (11.8-14.3); White Blood Cell 13.6 10^3/uL (4.4-10.8)
[2020-04-11 22:35] LABS: Band Neutrophils % (manual) 0; Basophils % (manual) 0 (0.0-2.0); Blast Cells 0; Eosinophils % (manual) 0 (0-7); Promyelocytes % 0; Reactive Lymphocytes 0
[2020-04-11 22:48] LABS: Lymphocytes % (manual) 4 (10.0-50.0); Metamyelocytes % 1; Monocytes % (manual) 5 (0-12); Myelocytes % 1
[2020-04-12] VITALS (53 sets, daily range): BP systolic 111–150; BP diastolic 47–87
[2020-04-12] MEDS: InsuLIN REG 1unit/0.01ml Soln (100units/ml) SC SCH ×4 (00:17→18:00)
[2020-04-12] MEDS: MORPHINE SULF INJ 2 MG/ML SYRINGE 1ML IV PRN ×2 (01:15→22:38)
[2020-04-12 02:36] LABS: Hemoglobin 9.3 g/dL (13.5-17.5); Mean Corpuscular Hemoglobin 30.5 pg (28.0-32.0); Mean Corpuscular Hgb Conc. 34.5 g/dL (32.0-36.0); Mean Corpuscular Volume 88.3 fL (80.0-100.0); Platelet Count (auto) 146 10^3/uL (140-450); Red Blood Cells 3.06 10^6/uL (4.5-5.90); Red Cell Distribution Width 14.5 % (11.8-14.3); White Blood Cell 13.2 10^3/uL (4.4-10.8)
[2020-04-12 02:37] LABS: BUN/Creatinine Ratio 42.2; Calcium 6.7 mg/dL (8.5-10.1); Potassium 4.1 mmol/L (3.5-5.1)
[2020-04-12 03:05] LABS: Basophils % (manual) 0 (0.0-2.0); Blast Cells 0; Eosinophils % (manual) 0 (0-7); Metamyelocytes % 0; Myelocytes % 0; Promyelocytes % 0; Reactive Lymphocytes 0
[2020-04-12 05:36] LABS: Band Neutrophils % (manual) 5; Lymphocytes % (manual) 4 (10.0-50.0); Monocytes % (manual) 4 (0-12)
[2020-04-12] MEDS: LEVOTHYROXINE SODIUM 25 MCG TAB PO SCH (06:52)
[2020-04-12] MEDS: ACCU-CHEK COMFORT CURVE STRIP VI SCH ×4 (06:52→18:00)
[2020-04-12] MEDS: SUCRALFATE 1 GM/10 ML ORAL SUSP PO SCH (06:52)
[2020-04-12 09:11] LABS: Hemoglobin 7.8 g/dL (13.5-17.5); Red Blood Cells 2.57 10^6/uL (4.5-5.90); White Blood Cell 13.9 10^3/uL (4.4-10.8)
[2020-04-12 09:13] LABS: Mean Corpuscular Hemoglobin 30.4 pg (28.0-32.0); Mean Corpuscular Hgb Conc. 33.9 g/dL (32.0-36.0); Mean Corpuscular Volume 89.5 fL (80.0-100.0); Platelet Count (auto) 157 10^3/uL (140-450); Red Cell Distribution Width 14.7 % (11.8-14.3)
[2020-04-12 09:16] LABS: Basophils % (manual) 0 (0.0-2.0); Blast Cells 0; Eosinophils % (manual) 0 (0-7); Metamyelocytes % 0; Myelocytes % 0; Promyelocytes % 0; Reactive Lymphocytes 0
[2020-04-12] MEDS: OXYBUTYNIN CHL 5 MG TAB PO SCH (10:00)
[2020-04-12] MEDS: PANTOPRAZOLE 40 MG/10 ML VIAL INJ IV SCH ×2 (10:22→22:15)
[2020-04-12 11:05] LABS: Band Neutrophils % (manual) 1; Lymphocytes % (manual) 4 (10.0-50.0); Monocytes % (manual) 3 (0-12)
[2020-04-12 14:07] LABS: Mean Corpuscular Volume 89.7 fL (80.0-100.0)
[2020-04-12 14:08] LABS: Hematocrit 21.5 % (41.0-53.0); Hemoglobin 7.2 g/dL (13.5-17.5); Mean Corpuscular Hemoglobin 30.1 pg (28.0-32.0); Mean Corpuscular Hgb Conc. 33.6 g/dL (32.0-36.0); Platelet Count (auto) 152 10^3/uL (140-450); Red Cell Distribution Width 14.7 % (11.8-14.3)
[2020-04-12 14:25] LABS: Band Neutrophils % (manual) 0; Basophils % (manual) 0 (0.0-2.0); Blast Cells 0; Eosinophils % (manual) 0 (0-7); Promyelocytes % 0; Reactive Lymphocytes 0
[2020-04-12 15:18] LABS: Lymphocytes % (manual) 8 (10.0-50.0); Metamyelocytes % 1; Monocytes % (manual) 3 (0-12); Myelocytes % 1
[2020-04-12] MEDS: TAMSULOSIN HYDROCHLORIDE 0.4 MG CAP PO SCH (18:00)
[2020-04-12] MEDS ORDERED: TPN PER PHARMACY 0 ML IV SCH (19:45)
[2020-04-12] MEDS: ALBUTEROL SULF 2.5 MG/0.5ML(0.5%) NEB SOLN NEB PRN (21:29)
[2020-04-12] MEDS ORDERED: AMINO ACID INFUSION IN D5W 2,000 ML IV NR (21:45)
[2020-04-12] MEDS: ATORVASTATIN 20 MG TAB PO SCH (22:15)
[2020-04-12] MEDS: GABAPENTIN 100 MG CAP PO SCH (22:15)
[2020-04-13] VITALS (16 sets, daily range): BP systolic 96–151; BP diastolic 36–76
[2020-04-13] MEDS: ACCU-CHEK COMFORT CURVE STRIP VI SCH ×4 (00:12→23:57)
[2020-04-13] MEDS: InsuLIN REG 1unit/0.01ml Soln (100units/ml) SC SCH ×5 (00:15→23:57)
[2020-04-13 01:10] LABS: Hematocrit 24.4 % (41.0-53.0); Hemoglobin 8.1 g/dL (13.5-17.5); Mean Corpuscular Hemoglobin 30.1 pg (28.0-32.0); Mean Corpuscular Hgb Conc. 33.3 g/dL (32.0-36.0); Mean Corpuscular Volume 90.4 fL (80.0-100.0); Platelet Count (auto) 122 10^3/uL (140-450); Red Cell Distribution Width 14.9 % (11.8-14.3); White Blood Cell 13.3 10^3/uL (4.4-10.8)
[2020-04-13 01:13] LABS: Basophils % (manual) 0 (0.0-2.0); Blast Cells 0; Eosinophils % (manual) 0 (0-7); Metamyelocytes % 0; Myelocytes % 0; Promyelocytes % 0; Reactive Lymphocytes 0
[2020-04-13 03:20] LABS: Band Neutrophils % (manual) 1
[2020-04-13 03:21] LABS: Lymphocytes % (manual) 4 (10.0-50.0); Monocytes % (manual) 6 (0-12)
[2020-04-13 04:55] LABS: Hematocrit 25.3 % (41.0-53.0); Hemoglobin 8.4 g/dL (13.5-17.5); Mean Corpuscular Hemoglobin 30.3 pg (28.0-32.0); Mean Corpuscular Hgb Conc. 33.3 g/dL (32.0-36.0); Platelet Count (auto) 169 10^3/uL (140-450); Red Blood Cells 2.78 10^6/uL (4.5-5.90); White Blood Cell 16.2 10^3/uL (4.4-10.8)
[2020-04-13 04:59] LABS: Basophils % (manual) 0 (0.0-2.0); Blast Cells 0; Eosinophils % (manual) 0 (0-7); Metamyelocytes % 0; Myelocytes % 0; Promyelocytes % 0; Reactive Lymphocytes 0
[2020-04-13 05:18] LABS: Calcium 6.7 mg/dL (8.5-10.1); Potassium 4.3 mmol/L (3.5-5.1)
[2020-04-13 05:21] LABS: Albumin 1.4 g/dL (3.4-5.0); BUN/Creatinine Ratio 50.8; Magnesium 2.2 mg/dL (1.6-2.6)
[2020-04-13] MEDS: LEVOTHYROXINE SODIUM 25 MCG TAB PO SCH (06:34)
[2020-04-13] MEDS: ALBUTEROL SULF 2.5 MG/0.5ML(0.5%) NEB SOLN NEB PRN (06:39)
[2020-04-13 06:54] LABS: Band Neutrophils % (manual) 5; Lymphocytes % (manual) 4 (10.0-50.0); Monocytes % (manual) 2 (0-12)
[2020-04-13] MEDS: MORPHINE SULF INJ 2 MG/ML SYRINGE 1ML IV PRN (09:04)
[2020-04-13 09:07] LABS: INR 2.1 (0.9-1.15); Partial Thromboplastin Time 23.3 sec (23.64-32.05)
[2020-04-13] MEDS: OXYBUTYNIN CHL 5 MG TAB PO SCH (10:20)
[2020-04-13] MEDS: PANTOPRAZOLE 40 MG/10 ML VIAL INJ IV SCH ×2 (10:21→21:35)
[2020-04-13] MEDS ORDERED: LIDOCAINE 1% (LOCAL ANESTH.) PF 5ml SDV ID ONE (15:00)
[2020-04-13] MEDS ORDERED: PHYTONADIONE (VIT K)10 MG/ML 1ML VIAL SUBCUT ONE (15:30)
[2020-04-13] MEDS ORDERED: PHYTONADIONE(VitK) ORAL Susp 10mg/10ml(1mg/ml) PO ONE (16:00)
[2020-04-13] MEDS: TAMSULOSIN HYDROCHLORIDE 0.4 MG CAP PO SCH (18:13)
[2020-04-13 18:55] LABS: Bilirubin, Total 0.5 mg/dL (0.2-1.0); Phosphorus 1.2 mg/dL (2.5-4.90); Total Protein 3.6 g/dL (6.4-8.2)
[2020-04-13] MEDS: PPN PER PHARMACY IV NR ×8 (20:00)
[2020-04-13] MEDS: GABAPENTIN 100 MG CAP PO SCH (21:36)
[2020-04-13] MEDS: SODIUM CHLOR 0.9% PF (SALINE LOCK) 10ML VIAL/SYR IV SCH (21:36)
[2020-04-13] MEDS: ATORVASTATIN 20 MG TAB PO SCH (21:36)
[2020-04-13 22:20] LABS: Red Cell Distribution Width 15.2 % (11.8-14.3)
[2020-04-13 22:22] LABS: Hematocrit 17.3 % (41.0-53.0); Mean Corpuscular Hemoglobin 30.9 pg (28.0-32.0); Mean Corpuscular Hgb Conc. 33.5 g/dL (32.0-36.0); Mean Corpuscular Volume 92.3 fL (80.0-100.0); Platelet Count (auto) 121 10^3/uL (140-450); Red Blood Cells 1.87 10^6/uL (4.5-5.90); White Blood Cell 12.9 10^3/uL (4.4-10.8)
[2020-04-13 22:28] LABS: Hemoglobin 5.8 g/dL (13.5-17.5)
[2020-04-13 22:30] LABS: Band Neutrophils % (manual) 0; Basophils % (manual) 0 (0.0-2.0); Blast Cells 0; Myelocytes % 0; Promyelocytes % 0; Reactive Lymphocytes 0
[2020-04-13 22:39] LABS: Eosinophils % (manual) 1 (0-7); Lymphocytes % (manual) 14 (10.0-50.0); Metamyelocytes % 1; Monocytes % (manual) 4 (0-12)
[2020-04-14] VITALS (65 sets, daily range): BP systolic 80–155; BP diastolic 31–55
[2020-04-14] MEDS: MORPHINE SULF INJ 2 MG/ML SYRINGE 1ML IV PRN ×2 (01:48→23:24)
[2020-04-14] MEDS: ACCU-CHEK COMFORT CURVE STRIP VI SCH ×4 (05:35→18:37)
[2020-04-14] MEDS: InsuLIN REG 1unit/0.01ml Soln (100units/ml) SC SCH ×4 (05:35→23:38)
[2020-04-14] MEDS: LEVOTHYROXINE SODIUM 25 MCG TAB PO SCH (06:21)
[2020-04-14 07:31] LABS: Hematocrit 23.4 % (41.0-53.0); Mean Corpuscular Hemoglobin 31.8 pg (28.0-32.0); Mean Corpuscular Hgb Conc. 34.4 g/dL (32.0-36.0); Mean Corpuscular Volume 92.5 fL (80.0-100.0); Platelet Count (auto) 105 10^3/uL (140-450); Red Blood Cells 2.53 10^6/uL (4.5-5.90); Red Cell Distribution Width 14.9 % (11.8-14.3)
[2020-04-14 07:32] LABS: INR 1.37 (0.9-1.15)
[2020-04-14 07:33] LABS: Albumin 1.6 g/dL (3.4-5.0); BUN/Creatinine Ratio 54.2; Calcium 6.7 mg/dL (8.5-10.1); Magnesium 2.2 mg/dL (1.6-2.6); Potassium 3.6 mmol/L (3.5-5.1)
[2020-04-14 07:36] LABS: Bilirubin, Total 0.4 mg/dL (0.2-1.0); Total Protein 3.9 g/dL (6.4-8.2)
[2020-04-14 07:42] LABS: Basophils % (manual) 0 (0.0-2.0); Blast Cells 0; Eosinophils % (manual) 0 (0-7); Myelocytes % 0; Promyelocytes % 0; Reactive Lymphocytes 0
[2020-04-14 07:55] LABS: Phosphorus 0.8 mg/dL (2.5-4.90)
[2020-04-14] MEDS ORDERED: SODIUM CHLORIDE LOCK 10 ML ONE (09:09)
[2020-04-14] MEDS ORDERED: EPINEPHrine HCL 1 MG/10 ML SYRG ONE (09:09)
[2020-04-14] MEDS ORDERED: MIDAZOLAM HCL 5 MG/ML-1ML VIAL ONE (09:10)
[2020-04-14] MEDS ORDERED: fentaNYL CITRATE 100 MCG/2 ML VL ONE (09:10)
[2020-04-14] MEDS ORDERED: diphenhdrAMINE HCL 50 MG/1 ML VL ONE (09:10)
[2020-04-14] MEDS ORDERED: THROMBIN (BOVINE) 5000 UNIT SOL VIAL ONE (09:26)
[2020-04-14] MEDS ORDERED: NOREPINEPHRINE 8 MG/250ML KIT 250 ML IV ONE (09:44)
[2020-04-14] MEDS: NOREPINEPHRINE 8 MG/250ML KIT 250 ML IV SCH (09:45)
[2020-04-14] MEDS: OXYBUTYNIN CHL 5 MG TAB PO SCH (10:00)
[2020-04-14] MEDS ORDERED: IOHEXOL 350 MG/ML 100ML IJ ONE (10:18)
[2020-04-14] MEDS ORDERED: SODIUM CHLORIDE 0.9% 1,000 ML IV ONE (10:30)
[2020-04-14] MEDS ORDERED: POTASSIUM PHOSPHATE 44 MEQ in D5W 5% 250 ML IV ONE (10:45)
[2020-04-14] MEDS: PANTOPRAZOLE 40 MG/10 ML VIAL INJ IV SCH ×2 (11:05→20:55)
[2020-04-14] MEDS: SODIUM CHLOR 0.9% PF (SALINE LOCK) 10ML VIAL/SYR IV SCH ×2 (11:05→20:56)
[2020-04-14 14:21] LABS: Band Neutrophils % (manual) 7; Lymphocytes % (manual) 1 (10.0-50.0); Metamyelocytes % 1; Monocytes % (manual) 7 (0-12)
[2020-04-14 15:37] LABS: Hemoglobin 7.9 g/dL (13.5-17.5)
[2020-04-14] MEDS: TAMSULOSIN HYDROCHLORIDE 0.4 MG CAP PO SCH (18:00)
[2020-04-14] MEDS: PPN PER PHARMACY IV NR ×8 (19:34)
[2020-04-14] MEDS ORDERED: TPN PER PHARMACY IV NR ×9 (20:00)
[2020-04-14] MEDS: ATORVASTATIN 20 MG TAB PO SCH (20:56)
[2020-04-14] MEDS: GABAPENTIN 100 MG CAP PO SCH (20:56)
[2020-04-15] VITALS (81 sets, daily range): BP systolic 88–143; BP diastolic 40–66
[2020-04-15 03:38] LABS: Hematocrit 20.8 % (41.0-53.0); Hemoglobin 7.1 g/dL (13.5-17.5)
[2020-04-15 03:54] LABS: Albumin 1.7 g/dL (3.4-5.0); BUN/Creatinine Ratio 40.4; Magnesium 2.1 mg/dL (1.6-2.6); Potassium 3.4 mmol/L (3.5-5.1)
[2020-04-15 03:57] LABS: Bilirubin, Total 0.3 mg/dL (0.2-1.0); Phosphorus 2.2 mg/dL (2.5-4.90)
[2020-04-15] MEDS: ACCU-CHEK COMFORT CURVE STRIP VI SCH ×4 (06:21→23:42)
[2020-04-15] MEDS: MORPHINE SULF INJ 2 MG/ML SYRINGE 1ML IV PRN ×3 (06:22→19:53)
[2020-04-15] MEDS: LEVOTHYROXINE SODIUM 25 MCG TAB PO SCH (06:22)
[2020-04-15] MEDS: InsuLIN REG 1unit/0.01ml Soln (100units/ml) SC SCH ×4 (06:32→23:46)
[2020-04-15] MEDS: OXYBUTYNIN CHL 5 MG TAB PO SCH (10:11)
[2020-04-15] MEDS: PANTOPRAZOLE 40 MG/10 ML VIAL INJ IV SCH ×2 (10:13→21:32)
[2020-04-15] MEDS: SODIUM CHLOR 0.9% PF (SALINE LOCK) 10ML VIAL/SYR IV SCH ×2 (10:14→21:32)
[2020-04-15] MEDS: NOREPINEPHRINE 8 MG/250ML KIT 250 ML IV SCH (10:27)
[2020-04-15 11:00] LABS: Hemoglobin 7.5 g/dL (13.5-17.5)
[2020-04-15] MEDS ORDERED: POTASSIUM PHOSP 22MEQ(15MMOLE) in NS 100 ML IV ONE (11:00)
[2020-04-15 11:09] LABS: Hematocrit 22.9 % (41.0-53.0); Mean Corpuscular Hemoglobin 30.7 pg (28.0-32.0); Mean Corpuscular Hgb Conc. 32.7 g/dL (32.0-36.0); Platelet Count (auto) 89 10^3/uL (140-450); Red Blood Cells 2.44 10^6/uL (4.5-5.90); Red Cell Distribution Width 15.6 % (11.8-14.3); White Blood Cell 7.3 10^3/uL (4.4-10.8)
[2020-04-15 11:10] LABS: Basophils % (manual) 0 (0.0-2.0); Blast Cells 0; Myelocytes % 0; Promyelocytes % 0; Reactive Lymphocytes 0
[2020-04-15 12:36] LABS: INR 1.13 (0.9-1.15); Partial Thromboplastin Time 28.8 sec (23.64-32.05)
[2020-04-15 13:34] LABS: Band Neutrophils % (manual) 1; Lymphocytes % (manual) 4 (10.0-50.0)
[2020-04-15 13:35] LABS: Eosinophils % (manual) 3 (0-7); Metamyelocytes % 2; Monocytes % (manual) 10 (0-12)
[2020-04-15] MEDS: TAMSULOSIN HYDROCHLORIDE 0.4 MG CAP PO SCH (18:06)
[2020-04-15 18:41] LABS: Pre Albumin 9.8 mg/dL (20.0-40.0)
[2020-04-15] MEDS ORDERED: TPN PER PHARMACY IV NR ×10 (20:00)
[2020-04-15] MEDS: GABAPENTIN 100 MG CAP PO SCH (21:31)
[2020-04-15] MEDS: ATORVASTATIN 20 MG TAB PO SCH (21:32)
[2020-04-15 21:51] LABS: Hematocrit 31.5 % (41.0-53.0); Hemoglobin 10.4 g/dL (13.5-17.5)
[2020-04-16] VITALS (49 sets, daily range): BP systolic 90–199; BP diastolic 42–64
[2020-04-16] MEDS: MORPHINE SULF INJ 2 MG/ML SYRINGE 1ML IV PRN ×3 (01:06→22:06)
[2020-04-16 03:34] LABS: Hematocrit 31.4 % (41.0-53.0); Hemoglobin 10.3 g/dL (13.5-17.5)
[2020-04-16 03:52] LABS: Potassium 3.6 mmol/L (3.5-5.1)
[2020-04-16 03:57] LABS: Albumin 1.6 g/dL (3.4-5.0); BUN/Creatinine Ratio 31.9; Bilirubin, Total 0.5 mg/dL (0.2-1.0); Calcium 7.1 mg/dL (8.5-10.1); Magnesium 2.3 mg/dL (1.6-2.6); Phosphorus 2.7 mg/dL (2.5-4.90); Total Protein 4.3 g/dL (6.4-8.2)
[2020-04-16] MEDS: InsuLIN REG 1unit/0.01ml Soln (100units/ml) SC SCH ×3 (06:27→17:37)
[2020-04-16] MEDS: ACCU-CHEK COMFORT CURVE STRIP VI SCH ×3 (06:29→17:33)
[2020-04-16] MEDS: LEVOTHYROXINE SODIUM 25 MCG TAB PO SCH (06:30)
[2020-04-16] MEDS ORDERED: PHYTONADIONE(VitK) ORAL Susp 10mg/10ml(1mg/ml) PO ONE (09:45)
[2020-04-16] MEDS: SODIUM CHLOR 0.9% PF (SALINE LOCK) 10ML VIAL/SYR IV SCH ×2 (10:07→22:00)
[2020-04-16] MEDS: PANTOPRAZOLE 40 MG/10 ML VIAL INJ IV SCH ×2 (10:07→22:00)
[2020-04-16] MEDS: OXYBUTYNIN CHL 5 MG TAB PO SCH (10:08)
[2020-04-16 11:56] LABS: Hematocrit 32.2 % (41.0-53.0); Hemoglobin 10.7 g/dL (13.5-17.5)
[2020-04-16] MEDS: TAMSULOSIN HYDROCHLORIDE 0.4 MG CAP PO SCH (17:38)
[2020-04-16 17:52] LABS: Hematocrit 33.3 % (41.0-53.0); Hemoglobin 10.6 g/dL (13.5-17.5)
[2020-04-16] MEDS ORDERED: TPN PER PHARMACY IV NR ×10 (20:00)
[2020-04-16] MEDS: ATORVASTATIN 20 MG TAB PO SCH (22:00)
[2020-04-16] MEDS: GABAPENTIN 100 MG CAP PO SCH (22:00)
[2020-04-17] VITALS (13 sets, daily range): BP systolic 93–114; BP diastolic 43–62
[2020-04-17] MEDS: InsuLIN REG 1unit/0.01ml Soln (100units/ml) SC SCH ×5 (00:56→23:59)
[2020-04-17 03:40] LABS: INR 1.16 (0.9-1.15); Partial Thromboplastin Time 30.2 sec (23.64-32.05)
[2020-04-17 03:55] LABS: % Iron Saturation 9.4 % (20-55); Calcium 7.3 mg/dL (8.5-10.1); Magnesium 2.1 mg/dL (1.6-2.6); Potassium 3.6 mmol/L (3.5-5.1)
[2020-04-17 04:00] LABS: BUN/Creatinine Ratio 26.1; Phosphorus 2.6 mg/dL (2.5-4.90); Pre Albumin 9.2 mg/dL (20.0-40.0)
[2020-04-17 04:24] LABS: Ferritin 36.4 ng/mL (10-322)
[2020-04-17] MEDS: ACCU-CHEK COMFORT CURVE STRIP VI SCH ×5 (05:51→23:59)
[2020-04-17] MEDS: LEVOTHYROXINE SODIUM 25 MCG TAB PO SCH (06:40)
[2020-04-17 09:23] LABS: Folate (Folic Acid) 11.95 ng/mL (5.38-24)
[2020-04-17] MEDS: MORPHINE SULF INJ 2 MG/ML SYRINGE 1ML IV PRN ×2 (10:47→21:21)
[2020-04-17] MEDS: PANTOPRAZOLE 40 MG/10 ML VIAL INJ IV SCH ×2 (10:47→21:47)
[2020-04-17] MEDS: SODIUM CHLOR 0.9% PF (SALINE LOCK) 10ML VIAL/SYR IV SCH ×2 (10:48→21:47)
[2020-04-17] MEDS: OXYBUTYNIN CHL 5 MG TAB PO SCH (10:48)
[2020-04-17 12:04] LABS: Basophils # (auto) 0 10 ^3/uL (0-0.2); Basophils % (auto) 0.4 % (0.0-2.0); Eosinophils # (auto) 0.3 10 ^3/uL (0-0.8); Eosinophils % (auto) 3.6 % (0.0-7.0); Hematocrit 33.2 % (41.0-53.0); Lymphocytes # (auto) 0.4 10 ^3/uL (0.4-5.4); Lymphocytes % (auto) 5.8 % (10.0-50.0); Mean Corpuscular Hgb Conc. 33.2 g/dL (32.0-36.0); Mean Corpuscular Volume 90.3 fL (80.0-100.0); Monocytes # (auto) 0.5 10 ^3/uL (0-1.3); Monocytes % (auto) 6.8 % (0.0-12.0); Neutrophils # (auto) 6.2 10 ^3/uL (1.6-8.6); Neutrophils % (auto) 83.4 % (37.0-80.0); Nucleated Red Blood Cells % 0.1 %; Platelet Count (auto) 115 10^3/uL (140-450); Red Blood Cells 3.67 10^6/uL (4.5-5.90); Red Cell Distribution Width 15.5 % (11.8-14.3); White Blood Cell 7.4 10^3/uL (4.4-10.8)
[2020-04-17] MEDS: TAMSULOSIN HYDROCHLORIDE 0.4 MG CAP PO SCH (18:27)
[2020-04-17] MEDS ORDERED: TPN PER PHARMACY IV NR ×10 (20:00)
[2020-04-17 20:55] LABS: Basophils # (auto) 0 10 ^3/uL (0-0.2); Basophils % (auto) 0.3 % (0.0-2.0); Eosinophils # (auto) 0.2 10 ^3/uL (0-0.8); Eosinophils % (auto) 3.4 % (0.0-7.0); Hematocrit 34.7 % (41.0-53.0); Hemoglobin 11.3 g/dL (13.5-17.5); Lymphocytes # (auto) 0.5 10 ^3/uL (0.4-5.4); Lymphocytes % (auto) 7.7 % (10.0-50.0); Mean Corpuscular Hemoglobin 29.4 pg (28.0-32.0); Mean Corpuscular Hgb Conc. 32.5 g/dL (32.0-36.0); Mean Corpuscular Volume 90.6 fL (80.0-100.0); Monocytes # (auto) 0.4 10 ^3/uL (0-1.3); Monocytes % (auto) 6.7 % (0.0-12.0); Neutrophils # (auto) 5.4 10 ^3/uL (1.6-8.6); Neutrophils % (auto) 81.9 % (37.0-80.0); Nucleated Red Blood Cells % 0.1 %; Platelet Count (auto) 115 10^3/uL (140-450); Red Blood Cells 3.83 10^6/uL (4.5-5.90); Red Cell Distribution Width 15.7 % (11.8-14.3); White Blood Cell 6.6 10^3/uL (4.4-10.8)
[2020-04-17] MEDS: ATORVASTATIN 20 MG TAB PO SCH (21:47)
[2020-04-17] MEDS: GABAPENTIN 100 MG CAP PO SCH (21:47)
[2020-04-18] VITALS (87 sets, daily range): BP systolic 65–183; BP diastolic 12–152
[2020-04-18] MEDS ORDERED: SODIUM CHLORIDE 0.9% 1,000 ML IV ONE (02:15)
[2020-04-18 03:02] LABS: BUN/Creatinine Ratio 44.4; Basophils # (auto) 0 10 ^3/uL (0-0.2); Basophils % (auto) 0.6 % (0.0-2.0); Calcium 6.5 mg/dL (8.5-10.1); Eosinophils # (auto) 0.3 10 ^3/uL (0-0.8); Eosinophils % (auto) 4.8 % (0.0-7.0); Hematocrit 24.8 % (41.0-53.0); Hemoglobin 8.2 g/dL (13.5-17.5); Lymphocytes # (auto) 0.6 10 ^3/uL (0.4-5.4); Lymphocytes % (auto) 8.8 % (10.0-50.0); Magnesium 2.1 mg/dL (1.6-2.6); Mean Corpuscular Hemoglobin 29.9 pg (28.0-32.0); Mean Corpuscular Volume 90.5 fL (80.0-100.0); Monocytes # (auto) 0.5 10 ^3/uL (0-1.3); Monocytes % (auto) 7.9 % (0.0-12.0); Neutrophils # (auto) 5.2 10 ^3/uL (1.6-8.6); Neutrophils % (auto) 77.9 % (37.0-80.0); Phosphorus 2.6 mg/dL (2.5-4.90); Platelet Count (auto) 129 10^3/uL (140-450); Potassium 4.1 mmol/L (3.5-5.1); Red Blood Cells 2.74 10^6/uL (4.5-5.90); Red Cell Distribution Width 15.5 % (11.8-14.3); White Blood Cell 6.7 10^3/uL (4.4-10.8)
[2020-04-18] MEDS: NOREPINEPHRINE 8 MG/250ML KIT 250 ML IV SCH (03:20)
[2020-04-18] MEDS: SODIUM CHLORIDE 0.9% 1,000 ML IV SCH ×3 (03:55→21:58)
[2020-04-18] MEDS: MORPHINE SULF INJ 2 MG/ML SYRINGE 1ML IV PRN ×2 (03:56→22:12)
[2020-04-18 04:51] LABS: Hematocrit 23.7 % (41.0-53.0); Hemoglobin 7.7 g/dL (13.5-17.5)
[2020-04-18] MEDS: ACCU-CHEK COMFORT CURVE STRIP VI SCH ×4 (06:10→23:43)
[2020-04-18] MEDS: InsuLIN REG 1unit/0.01ml Soln (100units/ml) SC SCH ×4 (06:17→23:43)
[2020-04-18] MEDS: LEVOTHYROXINE SODIUM 25 MCG TAB PO SCH (06:18)
[2020-04-18] MEDS ORDERED: AMIODARONE HCL 150 MG in D5W 5% 100 ML IV ONE (07:30)
[2020-04-18] MEDS ORDERED: AMIODARONE 450mg/250ml AE 250 ML IV SCH (07:33)
[2020-04-18] MEDS: FERROUS SULFATE 325 MG TAB PO SCH ×3 (08:00→17:51)
[2020-04-18] MEDS: PHENYLEPHRINE IV 250 ML IV SCH ×3 (08:20→23:00)
[2020-04-18] MEDS: SODIUM CHLOR 0.9% PF (SALINE LOCK) 10ML VIAL/SYR IV SCH ×2 (10:56→21:38)
[2020-04-18] MEDS: PANTOPRAZOLE 40 MG/10 ML VIAL INJ IV SCH ×2 (10:56→21:38)
[2020-04-18] MEDS: SUCRALFATE 1 GM/10 ML ORAL SUSP PO SCH ×3 (10:56→21:38)
[2020-04-18] MEDS: OXYBUTYNIN CHL 5 MG TAB PO SCH (10:56)
[2020-04-18] MEDS ORDERED: IOHEXOL 350 MG/ML 100ML IJ ONE ×2 (11:15→13:57)
[2020-04-18] MEDS: AMIODARONE 450mg/250ml AE 250 ML IV SCH (13:33)
[2020-04-18] MEDS ORDERED: GOLYTELY 4L KIT PO ONE (15:00)
[2020-04-18] MEDS: TAMSULOSIN HYDROCHLORIDE 0.4 MG CAP PO SCH (17:51)
[2020-04-18] MEDS: VASOPRESSIN 50 UNITS in D5W 5% 247.5 ML IV SCH (19:37)
[2020-04-18] MEDS ORDERED: TPN PER PHARMACY IV NR ×10 (20:00)
[2020-04-18] MEDS: ATORVASTATIN 20 MG TAB PO SCH (21:38)
[2020-04-18] MEDS: GABAPENTIN 100 MG CAP PO SCH (21:38)
[2020-04-19] VITALS (47 sets, daily range): BP systolic 82–143; BP diastolic 33–83
[2020-04-19 01:39] LABS: Basophils # (auto) 0 10 ^3/uL (0-0.2); Basophils % (auto) 0.4 % (0.0-2.0); Eosinophils # (auto) 0.1 10 ^3/uL (0-0.8); Hematocrit 28.2 % (41.0-53.0); Hemoglobin 9.6 g/dL (13.5-17.5); Lymphocytes # (auto) 0.7 10 ^3/uL (0.4-5.4); Lymphocytes % (auto) 6.7 % (10.0-50.0); Mean Corpuscular Hemoglobin 29.7 pg (28.0-32.0); Mean Corpuscular Hgb Conc. 34.1 g/dL (32.0-36.0); Mean Corpuscular Volume 87.4 fL (80.0-100.0); Monocytes % (auto) 9.7 % (0.0-12.0); Neutrophils # (auto) 8.3 10 ^3/uL (1.6-8.6); Neutrophils % (auto) 82.2 % (37.0-80.0); Platelet Count (auto) 141 10^3/uL (140-450); Red Blood Cells 3.23 10^6/uL (4.5-5.90); Red Cell Distribution Width 15.8 % (11.8-14.3)
[2020-04-19] MEDS: NOREPINEPHRINE 8 MG/250ML KIT 250 ML IV SCH (02:15)
[2020-04-19] MEDS: MORPHINE SULF INJ 2 MG/ML SYRINGE 1ML IV PRN ×2 (02:51→23:20)
[2020-04-19 03:50] LABS: Basophils # (auto) 0.1 10 ^3/uL (0-0.2); Basophils % (auto) 0.5 % (0.0-2.0); Eosinophils # (auto) 0.2 10 ^3/uL (0-0.8); Eosinophils % (auto) 1.5 % (0.0-7.0); Hematocrit 29.2 % (41.0-53.0); Hemoglobin 9.8 g/dL (13.5-17.5); Lymphocytes # (auto) 0.6 10 ^3/uL (0.4-5.4); Mean Corpuscular Hemoglobin 29.6 pg (28.0-32.0); Mean Corpuscular Hgb Conc. 33.6 g/dL (32.0-36.0); Mean Corpuscular Volume 88.2 fL (80.0-100.0); Monocytes # (auto) 0.8 10 ^3/uL (0-1.3); Monocytes % (auto) 7.9 % (0.0-12.0); Neutrophils # (auto) 8.7 10 ^3/uL (1.6-8.6); Neutrophils % (auto) 84.1 % (37.0-80.0); Platelet Count (auto) 144 10^3/uL (140-450); Red Blood Cells 3.31 10^6/uL (4.5-5.90); Red Cell Distribution Width 15.9 % (11.8-14.3); White Blood Cell 10.4 10^3/uL (4.4-10.8)
[2020-04-19 04:08] LABS: Albumin 1.7 g/dL (3.4-5.0); Calcium 6.8 mg/dL (8.5-10.1); Magnesium 2.2 mg/dL (1.6-2.6); Potassium 4.1 mmol/L (3.5-5.1)
[2020-04-19 04:13] LABS: BUN/Creatinine Ratio 55.8; Bilirubin, Total 0.6 mg/dL (0.2-1.0); INR 1.15 (0.9-1.15); Partial Thromboplastin Time 30.5 sec (23.64-32.05); Phosphorus 2.4 mg/dL (2.5-4.90); Total Protein 4.4 g/dL (6.4-8.2)
[2020-04-19] MEDS: AMIODARONE 450mg/250ml AE 250 ML IV SCH ×2 (04:45→18:08)
[2020-04-19] MEDS: InsuLIN REG 1unit/0.01ml Soln (100units/ml) SC SCH ×4 (06:00→23:23)
[2020-04-19] MEDS: ACCU-CHEK COMFORT CURVE STRIP VI SCH ×4 (06:11→23:15)
[2020-04-19] MEDS: LEVOTHYROXINE SODIUM 25 MCG TAB PO SCH (06:12)
[2020-04-19] MEDS: SUCRALFATE 1 GM/10 ML ORAL SUSP PO SCH ×4 (06:12→21:48)
[2020-04-19] MEDS: VASOPRESSIN 50 UNITS in D5W 5% 247.5 ML IV SCH (07:15)
[2020-04-19] MEDS: FERROUS SULFATE 325 MG TAB PO SCH ×3 (08:00→18:12)
[2020-04-19] MEDS: PHENYLEPHRINE IV 250 ML IV SCH ×2 (08:23→15:29)
[2020-04-19] MEDS: SODIUM CHLORIDE 0.9% 1,000 ML IV SCH ×2 (08:29→18:08)
[2020-04-19] MEDS ORDERED: NALOXONE HCL 0.4 MG/ML VIAL ONE (09:05)
[2020-04-19] MEDS ORDERED: FLUMAZENIL 0.1 MG/ML INJ 10ML MDV IV ONE (09:05)
[2020-04-19] MEDS ORDERED: MIDAZOLAM HCL 5 MG/ML-1ML VIAL ONE (09:05)
[2020-04-19] MEDS ORDERED: SODIUM CHLORIDE LOCK 10 ML ONE (09:05)
[2020-04-19] MEDS ORDERED: diphenhdrAMINE HCL 50 MG/1 ML VL ONE (09:05)
[2020-04-19] MEDS ORDERED: fentaNYL CITRATE 100 MCG/2 ML VL ONE ×2 (09:06→09:07)
[2020-04-19] MEDS ORDERED: LIDOCAINE VISCOUS 2% 15ML UD ONE (09:07)
[2020-04-19] MEDS: OXYBUTYNIN CHL 5 MG TAB PO SCH (11:49)
[2020-04-19] MEDS: SODIUM CHLOR 0.9% PF (SALINE LOCK) 10ML VIAL/SYR IV SCH ×2 (11:49→21:48)
[2020-04-19] MEDS: PANTOPRAZOLE 40 MG/10 ML VIAL INJ IV SCH ×2 (11:49→21:51)
[2020-04-19 12:26] LABS: Basophils # (auto) 0 10 ^3/uL (0-0.2); Basophils % (auto) 0.4 % (0.0-2.0); Eosinophils # (auto) 0.2 10 ^3/uL (0-0.8); Hemoglobin 8.4 g/dL (13.5-17.5); Lymphocytes # (auto) 0.4 10 ^3/uL (0.4-5.4); Monocytes # (auto) 0.6 10 ^3/uL (0-1.3); Platelet Count (auto) 106 10^3/uL (140-450)
[2020-04-19 12:28] LABS: Eosinophils % (auto) 2.6 % (0.0-7.0); Hematocrit 24.8 % (41.0-53.0); Lymphocytes % (auto) 5.3 % (10.0-50.0); Mean Corpuscular Hemoglobin 29.7 pg (28.0-32.0); Mean Corpuscular Volume 87.4 fL (80.0-100.0); Neutrophils # (auto) 6.3 10 ^3/uL (1.6-8.6); Neutrophils % (auto) 83.7 % (37.0-80.0); Red Blood Cells 2.83 10^6/uL (4.5-5.90); White Blood Cell 7.5 10^3/uL (4.4-10.8)
[2020-04-19] MEDS: TAMSULOSIN HYDROCHLORIDE 0.4 MG CAP PO SCH (18:12)
[2020-04-19 18:18] LABS: Basophils # (auto) 0 10 ^3/uL (0-0.2); Eosinophils # (auto) 0.2 10 ^3/uL (0-0.8); Hemoglobin 8.3 g/dL (13.5-17.5); Lymphocytes # (auto) 0.4 10 ^3/uL (0.4-5.4); Monocytes # (auto) 0.6 10 ^3/uL (0-1.3); Neutrophils # (auto) 5.8 10 ^3/uL (1.6-8.6); Platelet Count (auto) 111 10^3/uL (140-450); White Blood Cell 7.1 10^3/uL (4.4-10.8)
[2020-04-19 18:19] LABS: Basophils % (auto) 0.6 % (0.0-2.0); Eosinophils % (auto) 3.4 % (0.0-7.0); Hematocrit 24.9 % (41.0-53.0); Lymphocytes % (auto) 5.4 % (10.0-50.0); Mean Corpuscular Hemoglobin 29.1 pg (28.0-32.0); Mean Corpuscular Hgb Conc. 33.2 g/dL (32.0-36.0); Mean Corpuscular Volume 87.8 fL (80.0-100.0); Monocytes % (auto) 8.3 % (0.0-12.0); Neutrophils % (auto) 82.3 % (37.0-80.0); Red Blood Cells 2.83 10^6/uL (4.5-5.90); Red Cell Distribution Width 15.8 % (11.8-14.3)
[2020-04-19] MEDS ORDERED: TPN PER PHARMACY IV NR ×9 (20:00)
[2020-04-19] MEDS: GABAPENTIN 100 MG CAP PO SCH (21:49)
[2020-04-19] MEDS: ATORVASTATIN 20 MG TAB PO SCH (21:49)
[2020-04-20] VITALS (7 sets, daily range): BP systolic 100–125; BP diastolic 40–56
[2020-04-20] MEDS: PHENYLEPHRINE IV 250 ML IV SCH ×3 (01:03→16:24)
[2020-04-20] MEDS: NOREPINEPHRINE 8 MG/250ML KIT 250 ML IV SCH (02:15)
[2020-04-20] MEDS: SODIUM CHLORIDE 0.9% 1,000 ML IV SCH ×2 (03:22→13:21)
[2020-04-20 03:55] LABS: Basophils # (auto) 0 10 ^3/uL (0-0.2); Basophils % (auto) 0.3 % (0.0-2.0); Eosinophils # (auto) 0.2 10 ^3/uL (0-0.8); Eosinophils % (auto) 3.4 % (0.0-7.0); Hematocrit 23.7 % (41.0-53.0); Hemoglobin 7.9 g/dL (13.5-17.5); Lymphocytes # (auto) 0.4 10 ^3/uL (0.4-5.4); Lymphocytes % (auto) 5.3 % (10.0-50.0); Mean Corpuscular Hemoglobin 29.7 pg (28.0-32.0); Mean Corpuscular Hgb Conc. 33.5 g/dL (32.0-36.0); Mean Corpuscular Volume 88.6 fL (80.0-100.0); Monocytes # (auto) 0.7 10 ^3/uL (0-1.3); Monocytes % (auto) 9.1 % (0.0-12.0); Neutrophils # (auto) 5.9 10 ^3/uL (1.6-8.6); Neutrophils % (auto) 81.9 % (37.0-80.0); Platelet Count (auto) 106 10^3/uL (140-450); Red Blood Cells 2.67 10^6/uL (4.5-5.90); Red Cell Distribution Width 15.8 % (11.8-14.3); White Blood Cell 7.2 10^3/uL (4.4-10.8)
[2020-04-20 04:10] LABS: Potassium 3.8 mmol/L (3.5-5.1)
[2020-04-20 04:17] LABS: Albumin 1.4 g/dL (3.4-5.0); Bilirubin, Total 0.4 mg/dL (0.2-1.0); Calcium 6.6 mg/dL (8.5-10.1); Magnesium 2.2 mg/dL (1.6-2.6); Phosphorus 2.5 mg/dL (2.5-4.90); Total Protein 3.8 g/dL (6.4-8.2)
[2020-04-20] MEDS: ACCU-CHEK COMFORT CURVE STRIP VI SCH ×4 (05:46→23:50)
[2020-04-20] MEDS: InsuLIN REG 1unit/0.01ml Soln (100units/ml) SC SCH ×4 (05:46→23:41)
[2020-04-20] MEDS: SUCRALFATE 1 GM/10 ML ORAL SUSP PO SCH ×4 (06:18→21:10)
[2020-04-20] MEDS: LEVOTHYROXINE SODIUM 25 MCG TAB PO SCH (06:18)
[2020-04-20] MEDS: VASOPRESSIN 50 UNITS in D5W 5% 247.5 ML IV SCH (06:19)
[2020-04-20] MEDS: FERROUS SULFATE 325 MG TAB PO SCH ×3 (07:59→17:34)
[2020-04-20] MEDS: AMIODARONE 450mg/250ml AE 250 ML IV SCH (09:07)
[2020-04-20] MEDS: SODIUM CHLOR 0.9% PF (SALINE LOCK) 10ML VIAL/SYR IV SCH ×2 (09:57→21:12)
[2020-04-20] MEDS: OXYBUTYNIN CHL 5 MG TAB PO SCH (09:57)
[2020-04-20] MEDS: PANTOPRAZOLE 40 MG/10 ML VIAL INJ IV SCH ×2 (10:05→21:10)
[2020-04-20] MEDS: MORPHINE SULF INJ 2 MG/ML SYRINGE 1ML IV PRN ×2 (14:22→21:11)
[2020-04-20] MEDS ORDERED: GABAPENTIN 100 MG CAP PO ONE (14:30)
[2020-04-20] MEDS: TAMSULOSIN HYDROCHLORIDE 0.4 MG CAP PO SCH (17:34)
[2020-04-20] MEDS ORDERED: TPN PER PHARMACY IV NR ×10 (20:00)
[2020-04-20] MEDS: ATORVASTATIN 20 MG TAB PO SCH (21:11)
[2020-04-20] MEDS: GABAPENTIN 100 MG CAP PO SCH ×2 (21:11→22:00)
[2020-04-20] MEDS: ACETAMINOPHEN 325 MG TAB PO PRN (23:03)
[2020-04-21] MEDS: SODIUM CHLORIDE 0.9% 1,000 ML IV SCH ×3 (00:15→20:15)
[2020-04-21] MEDS: AMIODARONE 450mg/250ml AE 250 ML IV SCH ×2 (01:00→17:18)
[2020-04-21] MEDS: MORPHINE SULF INJ 2 MG/ML SYRINGE 1ML IV PRN (01:42)
[2020-04-21] MEDS: PHENYLEPHRINE IV 250 ML IV SCH ×2 (02:03→10:23)
[2020-04-21] MEDS: NOREPINEPHRINE 8 MG/250ML KIT 250 ML IV SCH (02:15)
[2020-04-21 04:00] VITALS: BP 113/46
[2020-04-21 04:00] LABS: Potassium 3.4 mmol/L (3.5-5.1)
[2020-04-21 04:06] LABS: Albumin 1.4 g/dL (3.4-5.0); BUN/Creatinine Ratio 30.6; Bilirubin, Total 0.3 mg/dL (0.2-1.0); Calcium 6.8 mg/dL (8.5-10.1); Magnesium 2.1 mg/dL (1.6-2.6); Phosphorus 2.5 mg/dL (2.5-4.90); Total Protein 3.9 g/dL (6.4-8.2)
[2020-04-21] MEDS: ACCU-CHEK COMFORT CURVE STRIP VI SCH ×3 (05:51→18:12)
[2020-04-21] MEDS: SUCRALFATE 1 GM/10 ML ORAL SUSP PO SCH ×4 (05:51→21:05)
[2020-04-21] MEDS: LEVOTHYROXINE SODIUM 25 MCG TAB PO SCH (05:51)
[2020-04-21] MEDS: InsuLIN REG 1unit/0.01ml Soln (100units/ml) SC SCH ×3 (06:00→18:13)
[2020-04-21] MEDS: VASOPRESSIN 50 UNITS in D5W 5% 247.5 ML IV SCH (07:15)
[2020-04-21 08:00] VITALS: BP 105/47
[2020-04-21] MEDS ORDERED: POTASSIUM PHOSPHATE 26.4 MEQ in SODIUM CHL 0.9% 100 ML IV ONE (09:00)
[2020-04-21] MEDS: FERROUS SULFATE 325 MG TAB PO SCH ×3 (10:10→18:15)
[2020-04-21] MEDS: PANTOPRAZOLE 40 MG/10 ML VIAL INJ IV SCH ×2 (10:11→21:08)
[2020-04-21] MEDS: GABAPENTIN 100 MG CAP PO SCH ×3 (10:11→21:08)
[2020-04-21] MEDS: SODIUM CHLOR 0.9% PF (SALINE LOCK) 10ML VIAL/SYR IV SCH ×2 (10:11→21:19)
[2020-04-21] MEDS: OXYBUTYNIN CHL 5 MG TAB PO SCH (10:33)
[2020-04-21 11:13] LABS: Basophils # (auto) 0 10 ^3/uL (0-0.2); Basophils % (auto) 0.5 % (0.0-2.0); Eosinophils # (auto) 0.3 10 ^3/uL (0-0.8); Eosinophils % (auto) 3.6 % (0.0-7.0); Hematocrit 29.8 % (41.0-53.0); Hemoglobin 9.6 g/dL (13.5-17.5); Lymphocytes # (auto) 0.5 10 ^3/uL (0.4-5.4); Lymphocytes % (auto) 6.1 % (10.0-50.0); Mean Corpuscular Hemoglobin 29.1 pg (28.0-32.0); Mean Corpuscular Hgb Conc. 32.3 g/dL (32.0-36.0); Mean Corpuscular Volume 90.1 fL (80.0-100.0); Monocytes # (auto) 0.7 10 ^3/uL (0-1.3); Monocytes % (auto) 9.3 % (0.0-12.0); Neutrophils # (auto) 6.2 10 ^3/uL (1.6-8.6); Neutrophils % (auto) 80.5 % (37.0-80.0); Nucleated Red Blood Cells % 0.2 %; Platelet Count (auto) 151 10^3/uL (140-450); Red Cell Distribution Width 16.2 % (11.8-14.3); White Blood Cell 7.7 10^3/uL (4.4-10.8)
[2020-04-21 11:23] LABS: Calcium 7.5 mg/dL (8.5-10.1); Potassium 3.7 mmol/L (3.5-5.1)
[2020-04-21 11:25] LABS: BUN/Creatinine Ratio 27.5
[2020-04-21 12:00] VITALS: BP 118/50
[2020-04-21 17:00] VITALS: BP 125/59
[2020-04-21] MEDS: ENOXAPARIN SOD 40 MG/0.4 ML SYRINGE SC SCH (17:17)
[2020-04-21] MEDS: TAMSULOSIN HYDROCHLORIDE 0.4 MG CAP PO SCH (18:15)
[2020-04-21] MEDS ORDERED: TPN PER PHARMACY IV NR ×10 (20:00)
[2020-04-21] MEDS: ATORVASTATIN 20 MG TAB PO SCH (21:06)
[2020-04-21 22:00] VITALS: BP 116/53
[2020-04-22] MEDS: ACETAMINOPHEN 325 MG TAB PO PRN ×2 (00:37→08:30)
[2020-04-22 05:00] VITALS: BP 166/67
[2020-04-22] MEDS: InsuLIN REG 1unit/0.01ml Soln (100units/ml) SC SCH ×4 (05:15→18:14)
[2020-04-22] MEDS: ACCU-CHEK COMFORT CURVE STRIP VI SCH ×4 (05:16→18:12)
[2020-04-22] MEDS: AMIODARONE 450mg/250ml AE 250 ML IV SCH ×2 (05:39→22:33)
[2020-04-22] MEDS: SUCRALFATE 1 GM/10 ML ORAL SUSP PO SCH ×4 (05:39→21:08)
[2020-04-22] MEDS: LEVOTHYROXINE SODIUM 25 MCG TAB PO SCH (05:39)
[2020-04-22] MEDS: SODIUM CHLORIDE 0.9% 1,000 ML IV SCH ×2 (06:04→16:51)
[2020-04-22 06:33] LABS: Basophils # (auto) 0 10 ^3/uL (0-0.2); Basophils % (auto) 0.6 % (0.0-2.0); Eosinophils # (auto) 0.2 10 ^3/uL (0-0.8); Eosinophils % (auto) 3.1 % (0.0-7.0); Hematocrit 22.4 % (41.0-53.0); Hemoglobin 7.5 g/dL (13.5-17.5); Lymphocytes # (auto) 0.5 10 ^3/uL (0.4-5.4); Lymphocytes % (auto) 6.3 % (10.0-50.0); Mean Corpuscular Hemoglobin 30.2 pg (28.0-32.0); Mean Corpuscular Hgb Conc. 33.4 g/dL (32.0-36.0); Mean Corpuscular Volume 90.5 fL (80.0-100.0); Monocytes # (auto) 0.8 10 ^3/uL (0-1.3); Monocytes % (auto) 10.3 % (0.0-12.0); Neutrophils % (auto) 79.7 % (37.0-80.0); Nucleated Red Blood Cells % 0.1 %; Platelet Count (auto) 141 10^3/uL (140-450); Red Blood Cells 2.48 10^6/uL (4.5-5.90); Red Cell Distribution Width 15.6 % (11.8-14.3); White Blood Cell 7.6 10^3/uL (4.4-10.8)
[2020-04-22 06:49] LABS: Potassium 4.3 mmol/L (3.5-5.1)
[2020-04-22 06:57] LABS: Albumin 1.4 g/dL (3.4-5.0); BUN/Creatinine Ratio 41.9; Bilirubin, Total 0.3 mg/dL (0.2-1.0); Magnesium 2.2 mg/dL (1.6-2.6)
[2020-04-22] MEDS: FERROUS SULFATE 325 MG TAB PO SCH ×3 (08:38→18:14)
[2020-04-22 09:28] VITALS: BP 125/61
[2020-04-22] MEDS: OXYBUTYNIN CHL 5 MG TAB PO SCH (09:52)
[2020-04-22] MEDS: GABAPENTIN 100 MG CAP PO SCH ×3 (09:52→21:09)
[2020-04-22] MEDS: PANTOPRAZOLE 40 MG/10 ML VIAL INJ IV SCH ×2 (09:52→21:08)
[2020-04-22] MEDS: ENOXAPARIN SOD 40 MG/0.4 ML SYRINGE SC SCH (09:53)
[2020-04-22] MEDS: SODIUM CHLOR 0.9% PF (SALINE LOCK) 10ML VIAL/SYR IV SCH ×2 (12:06→21:08)
[2020-04-22 13:00] VITALS: BP 126/58
[2020-04-22] MEDS: HYDROcodone-ACET 5/325MG TAB PO PRN ×2 (13:23→21:09)
[2020-04-22 17:00] VITALS: BP 118/63
[2020-04-22] MEDS: TAMSULOSIN HYDROCHLORIDE 0.4 MG CAP PO SCH (18:14)
[2020-04-22 19:33] LABS: Eosinophils # (auto) 0.1 10 ^3/uL (0-0.8); Eosinophils % (auto) 1.3 % (0.0-7.0); Lymphocytes # (auto) 0.5 10 ^3/uL (0.4-5.4); Monocytes # (auto) 0.9 10 ^3/uL (0-1.3); Nucleated Red Blood Cells % 0.1 %; Red Cell Distribution Width 16.1 % (11.8-14.3)
[2020-04-22 19:39] LABS: Basophils # (auto) 0 10 ^3/uL (0-0.2); Basophils % (auto) 0.4 % (0.0-2.0); Hematocrit 21.7 % (41.0-53.0); Lymphocytes % (auto) 5.3 % (10.0-50.0); Mean Corpuscular Hemoglobin 29.8 pg (28.0-32.0); Mean Corpuscular Hgb Conc. 32.3 g/dL (32.0-36.0); Mean Corpuscular Volume 92.4 fL (80.0-100.0); Neutrophils # (auto) 8.4 10 ^3/uL (1.6-8.6); Platelet Count (auto) 183 10^3/uL (140-450); Red Blood Cells 2.35 10^6/uL (4.5-5.90)
[2020-04-22] MEDS ORDERED: TPN PER PHARMACY IV NR ×10 (20:00)
[2020-04-22] MEDS: ATORVASTATIN 20 MG TAB PO SCH (21:08)
[2020-04-22 21:52] VITALS: BP 111/48
[2020-04-22] MEDS ORDERED: FUROSEMIDE 20 MG/2 ML VIAL IV ONE (22:30)
[2020-04-23] VITALS (20 sets, daily range): BP systolic 95–143; BP diastolic 47–76
[2020-04-23] MEDS: ACCU-CHEK COMFORT CURVE STRIP VI SCH ×4 (01:02→18:08)
[2020-04-23] MEDS: InsuLIN REG 1unit/0.01ml Soln (100units/ml) SC SCH ×4 (01:06→18:08)
[2020-04-23] MEDS: HYDROcodone-ACET 5/325MG TAB PO PRN ×2 (02:10→20:53)
[2020-04-23] MEDS: SODIUM CHLORIDE 0.9% 1,000 ML IV SCH ×3 (02:15→22:15)
[2020-04-23] MEDS: MORPHINE SULF INJ 2 MG/ML SYRINGE 1ML IV PRN (04:31)
[2020-04-23] MEDS: LEVOTHYROXINE SODIUM 25 MCG TAB PO SCH (06:49)
[2020-04-23] MEDS: SUCRALFATE 1 GM/10 ML ORAL SUSP PO SCH ×4 (06:49→21:38)
[2020-04-23 07:36] LABS: Albumin 1.3 g/dL (3.4-5.0); Magnesium 2.1 mg/dL (1.6-2.6); Potassium 4.7 mmol/L (3.5-5.1)
[2020-04-23 07:39] LABS: BUN/Creatinine Ratio 61.4; Bilirubin, Total 0.4 mg/dL (0.2-1.0); Phosphorus 3.1 mg/dL (2.5-4.90); Total Protein 3.5 g/dL (6.4-8.2)
[2020-04-23 07:56] LABS: Hematocrit 17.6 % (41.0-53.0); Mean Corpuscular Hgb Conc. 33.4 g/dL (32.0-36.0); Red Blood Cells 2.05 10^6/uL (4.5-5.90)
[2020-04-23 07:57] LABS: Mean Corpuscular Hemoglobin 28.7 pg (28.0-32.0); Mean Corpuscular Volume 85.7 fL (80.0-100.0); Platelet Count (auto) 128 10^3/uL (140-450); White Blood Cell 10.4 10^3/uL (4.4-10.8)
[2020-04-23 08:10] LABS: Red Cell Distribution Width 20.9 % (11.8-14.3)
[2020-04-23 08:15] LABS: Hemoglobin 5.9 g/dL (13.5-17.5)
[2020-04-23] MEDS ORDERED: FUROSEMIDE 40 MG/4 ML VIAL IV ONE ×2 (08:15→17:45)
[2020-04-23] MEDS ORDERED: ALBUTEROL SULF 2.5 MG/0.5ML(0.5%) NEB SOLN NEB PRN (08:15)
[2020-04-23 08:19] LABS: Basophils % (manual) 0 (0.0-2.0); Blast Cells 0; Eosinophils % (manual) 0 (0-7); Metamyelocytes % 0; Myelocytes % 0; Promyelocytes % 0; Reactive Lymphocytes 0
[2020-04-23] MEDS: ALBUTEROL SULF 2.5 MG/0.5ML(0.5%) NEB SOLN NEB SCH ×4 (08:49→22:08)
[2020-04-23 08:57] LABS: Band Neutrophils % (manual) 2; Lymphocytes % (manual) 7 (10.0-50.0); Monocytes % (manual) 7 (0-12)
[2020-04-23] MEDS: FERROUS SULFATE 325 MG TAB PO SCH ×3 (08:57→18:10)
[2020-04-23] MEDS: PANTOPRAZOLE 40 MG/10 ML VIAL INJ IV SCH ×2 (11:18→21:40)
[2020-04-23] MEDS: OXYBUTYNIN CHL 5 MG TAB PO SCH (11:23)
[2020-04-23] MEDS: GABAPENTIN 100 MG CAP PO SCH ×3 (11:23→21:39)
[2020-04-23] MEDS: SODIUM CHLOR 0.9% PF (SALINE LOCK) 10ML VIAL/SYR IV SCH ×2 (11:24→21:40)
[2020-04-23] MEDS: AMIODARONE HCL 200 MG TAB PO SCH (11:25)
[2020-04-23] MEDS: TAMSULOSIN HYDROCHLORIDE 0.4 MG CAP PO SCH (18:10)
[2020-04-23] MEDS ORDERED: TPN PER PHARMACY IV NR ×9 (20:00)
[2020-04-23] MEDS: ATORVASTATIN 20 MG TAB PO SCH (21:38)
[2020-04-24] VITALS (14 sets, daily range): BP systolic 91–140; BP diastolic 41–87
[2020-04-24] MEDS: InsuLIN REG 1unit/0.01ml Soln (100units/ml) SC SCH ×4 (00:04→18:27)
[2020-04-24] MEDS: ALBUTEROL SULF 2.5 MG/0.5ML(0.5%) NEB SOLN NEB SCH ×6 (02:12→22:00)
[2020-04-24 02:18] LABS: Basophils # (auto) 0.1 10 ^3/uL (0-0.2); Eosinophils # (auto) 0 10 ^3/uL (0-0.8); Eosinophils % (auto) 0.1 % (0.0-7.0); Lymphocytes # (auto) 0.6 10 ^3/uL (0.4-5.4); Lymphocytes % (auto) 4.8 % (10.0-50.0); Neutrophils # (auto) 10.5 10 ^3/uL (1.6-8.6); Nucleated Red Blood Cells % 0.1 %; White Blood Cell 12.2 10^3/uL (4.4-10.8)
[2020-04-24 02:20] LABS: Basophils % (auto) 0.5 % (0.0-2.0); Hematocrit 18.4 % (41.0-53.0); Mean Corpuscular Hemoglobin 29.6 pg (28.0-32.0); Mean Corpuscular Hgb Conc. 33.4 g/dL (32.0-36.0); Mean Corpuscular Volume 88.8 fL (80.0-100.0); Monocytes % (auto) 8.2 % (0.0-12.0); Neutrophils % (auto) 86.4 % (37.0-80.0); Platelet Count (auto) 124 10^3/uL (140-450); Red Blood Cells 2.07 10^6/uL (4.5-5.90); Red Cell Distribution Width 17.2 % (11.8-14.3)
[2020-04-24 02:38] LABS: Hemoglobin 6.1 g/dL (13.5-17.5)
[2020-04-24] MEDS ORDERED: FUROSEMIDE 20 MG/2 ML VIAL IV ONE (03:00)
[2020-04-24] MEDS: ACCU-CHEK COMFORT CURVE STRIP VI SCH ×4 (05:51→18:24)
[2020-04-24] MEDS: LEVOTHYROXINE SODIUM 25 MCG TAB PO SCH (06:12)
[2020-04-24] MEDS: SUCRALFATE 1 GM/10 ML ORAL SUSP PO SCH ×4 (06:12→22:56)
[2020-04-24] MEDS: PANTOPRAZOLE 40 MG/10 ML VIAL INJ IV SCH ×2 (09:13→22:56)
[2020-04-24] MEDS: GABAPENTIN 100 MG CAP PO SCH ×3 (09:14→22:56)
[2020-04-24] MEDS: AMIODARONE HCL 200 MG TAB PO SCH (09:14)
[2020-04-24] MEDS: SODIUM CHLOR 0.9% PF (SALINE LOCK) 10ML VIAL/SYR IV SCH ×2 (09:14→22:56)
[2020-04-24] MEDS: FERROUS SULFATE 325 MG TAB PO SCH ×3 (09:14→18:23)
[2020-04-24] MEDS: HYDROcodone-ACET 5/325MG TAB PO PRN ×3 (09:14→22:58)
[2020-04-24] MEDS: OXYBUTYNIN CHL 5 MG TAB PO SCH (09:14)
[2020-04-24 13:12] LABS: Albumin 1.3 g/dL (3.4-5.0)
[2020-04-24 13:14] LABS: INR 1.16 (0.9-1.15); Partial Thromboplastin Time 27.1 sec (23.64-32.05)
[2020-04-24 13:20] LABS: BUN/Creatinine Ratio 105.4; Bilirubin, Total 0.4 mg/dL (0.2-1.0); Phosphorus 2.7 mg/dL (2.5-4.90); Pre Albumin 7.7 mg/dL (20.0-40.0); Total Protein 3.3 g/dL (6.4-8.2)
[2020-04-24 15:39] LABS: Basophils # (auto) 0 10 ^3/uL (0-0.2); Basophils % (auto) 0.2 % (0.0-2.0); Eosinophils # (auto) 0.1 10 ^3/uL (0-0.8); Eosinophils % (auto) 0.6 % (0.0-7.0); Hematocrit 26.3 % (41.0-53.0); Hemoglobin 8.9 g/dL (13.5-17.5); Lymphocytes # (auto) 0.5 10 ^3/uL (0.4-5.4); Lymphocytes % (auto) 4.7 % (10.0-50.0); Mean Corpuscular Hemoglobin 29.7 pg (28.0-32.0); Mean Corpuscular Hgb Conc. 33.7 g/dL (32.0-36.0); Mean Corpuscular Volume 87.9 fL (80.0-100.0); Monocytes # (auto) 1.1 10 ^3/uL (0-1.3); Monocytes % (auto) 9.9 % (0.0-12.0); Neutrophils # (auto) 9.6 10 ^3/uL (1.6-8.6); Neutrophils % (auto) 84.6 % (37.0-80.0); Nucleated Red Blood Cells % 0.1 %; Platelet Count (auto) 101 10^3/uL (140-450); Red Blood Cells 2.99 10^6/uL (4.5-5.90); Red Cell Distribution Width 15.5 % (11.8-14.3); White Blood Cell 11.3 10^3/uL (4.4-10.8)
[2020-04-24] MEDS: TAMSULOSIN HYDROCHLORIDE 0.4 MG CAP PO SCH (18:24)
[2020-04-24] MEDS ORDERED: TPN PER PHARMACY IV NR ×9 (20:00)
[2020-04-24] MEDS: ATORVASTATIN 20 MG TAB PO SCH (22:56)
[2020-04-25] VITALS (17 sets, daily range): BP systolic 89–148; BP diastolic 32–67
[2020-04-25] MEDS: ACCU-CHEK COMFORT CURVE STRIP VI SCH ×4 (00:04→17:53)
[2020-04-25] MEDS: InsuLIN REG 1unit/0.01ml Soln (100units/ml) SC SCH ×4 (00:16→18:19)
[2020-04-25] MEDS: ALBUTEROL SULF 2.5 MG/0.5ML(0.5%) NEB SOLN NEB SCH ×6 (02:36→22:45)
[2020-04-25 03:21] LABS: Basophils # (auto) 0 10 ^3/uL (0-0.2); Eosinophils # (auto) 0.1 10 ^3/uL (0-0.8); Eosinophils % (auto) 1.1 % (0.0-7.0); Lymphocytes # (auto) 0.8 10 ^3/uL (0.4-5.4); Neutrophils # (auto) 7.8 10 ^3/uL (1.6-8.6); Nucleated Red Blood Cells % 0.2 %; White Blood Cell 9.7 10^3/uL (4.4-10.8)
[2020-04-25 03:23] LABS: Basophils % (auto) 0.2 % (0.0-2.0); Hematocrit 18.4 % (41.0-53.0); Lymphocytes % (auto) 8.1 % (10.0-50.0); Mean Corpuscular Hemoglobin 30.4 pg (28.0-32.0); Mean Corpuscular Volume 89.4 fL (80.0-100.0); Monocytes % (auto) 10.6 % (0.0-12.0); Platelet Count (auto) 92 10^3/uL (140-450); Red Blood Cells 2.06 10^6/uL (4.5-5.90); Red Cell Distribution Width 15.8 % (11.8-14.3)
[2020-04-25 03:29] LABS: Hemoglobin 6.3 g/dL (13.5-17.5)
[2020-04-25] MEDS ORDERED: FUROSEMIDE 40 MG/4 ML VIAL IV ONE (03:45)
[2020-04-25 04:05] LABS: Albumin 1.1 g/dL (3.4-5.0); BUN/Creatinine Ratio 118.4; Calcium 6.6 mg/dL (8.5-10.1)
[2020-04-25 04:08] LABS: Bilirubin, Total 0.3 mg/dL (0.2-1.0); Phosphorus 2.8 mg/dL (2.5-4.90); Total Protein 3.3 g/dL (6.4-8.2)
[2020-04-25] MEDS: HYDROcodone-ACET 5/325MG TAB PO PRN ×3 (05:13→22:42)
[2020-04-25] MEDS: SUCRALFATE 1 GM/10 ML ORAL SUSP PO SCH ×4 (06:44→22:40)
[2020-04-25] MEDS: LEVOTHYROXINE SODIUM 25 MCG TAB PO SCH (06:44)
[2020-04-25] MEDS: FERROUS SULFATE 325 MG TAB PO SCH ×3 (08:27→17:52)
[2020-04-25] MEDS: PANTOPRAZOLE 40 MG/10 ML VIAL INJ IV SCH ×2 (10:18→22:40)
[2020-04-25] MEDS: SODIUM CHLOR 0.9% PF (SALINE LOCK) 10ML VIAL/SYR IV SCH ×2 (10:18→22:00)
[2020-04-25] MEDS: OXYBUTYNIN CHL 5 MG TAB PO SCH (10:19)
[2020-04-25] MEDS: AMIODARONE HCL 200 MG TAB PO SCH (10:19)
[2020-04-25] MEDS: GABAPENTIN 100 MG CAP PO SCH ×2 (10:19→22:42)
[2020-04-25] MEDS: NOREPINEPHRINE 8 MG/250ML KIT 250 ML IV SCH (12:45)
[2020-04-25] MEDS: MORPHINE SULF INJ 2 MG/ML SYRINGE 1ML IV PRN (15:53)
[2020-04-25 16:39] LABS: Basophils # (auto) 0 10 ^3/uL (0-0.2); Eosinophils # (auto) 0.1 10 ^3/uL (0-0.8); Hematocrit 21.6 % (41.0-53.0); Hemoglobin 7.1 g/dL (13.5-17.5); Lymphocytes # (auto) 0.5 10 ^3/uL (0.4-5.4); Monocytes # (auto) 0.6 10 ^3/uL (0-1.3); Neutrophils # (auto) 5.4 10 ^3/uL (1.6-8.6); Red Cell Distribution Width 19.8 % (11.8-14.3)
[2020-04-25 16:41] LABS: Basophils % (auto) 0.5 % (0.0-2.0); Lymphocytes % (auto) 7.3 % (10.0-50.0); Mean Corpuscular Hemoglobin 30.5 pg (28.0-32.0); Mean Corpuscular Hgb Conc. 32.7 g/dL (32.0-36.0); Mean Corpuscular Volume 93.4 fL (80.0-100.0); Monocytes % (auto) 9.2 % (0.0-12.0); Nucleated Red Blood Cells % 0.2 %; Red Blood Cells 2.31 10^6/uL (4.5-5.90); White Blood Cell 6.6 10^3/uL (4.4-10.8)
[2020-04-25 16:44] LABS: Platelet Count (auto) 69 10^3/uL (140-450)
[2020-04-25] MEDS: TAMSULOSIN HYDROCHLORIDE 0.4 MG CAP PO SCH (17:53)
[2020-04-25] MEDS ORDERED: FUROSEMIDE 20 MG/2 ML VIAL IV ONE (19:15)
[2020-04-25] MEDS ORDERED: TPN PER PHARMACY IV NR ×9 (20:00)
[2020-04-25] MEDS: ATORVASTATIN 20 MG TAB PO SCH (22:41)
[2020-04-26] VITALS (14 sets, daily range): BP systolic 94–105; BP diastolic 31–69
[2020-04-26] MEDS: ACCU-CHEK COMFORT CURVE STRIP VI SCH ×4 (00:29→23:58)
[2020-04-26 01:17] LABS: Basophils # (auto) 0 10 ^3/uL (0-0.2); Eosinophils # (auto) 0.1 10 ^3/uL (0-0.8); Eosinophils % (auto) 0.8 % (0.0-7.0); Lymphocytes # (auto) 0.4 10 ^3/uL (0.4-5.4); Platelet Count (auto) 66 10^3/uL (140-450); Red Cell Distribution Width 18.7 % (11.8-14.3)
[2020-04-26 01:19] LABS: Basophils % (auto) 0.2 % (0.0-2.0); Hematocrit 23.8 % (41.0-53.0); Lymphocytes % (auto) 5.2 % (10.0-50.0); Mean Corpuscular Hemoglobin 29.5 pg (28.0-32.0); Mean Corpuscular Hgb Conc. 33.6 g/dL (32.0-36.0); Mean Corpuscular Volume 87.9 fL (80.0-100.0); Monocytes # (auto) 0.7 10 ^3/uL (0-1.3); Neutrophils # (auto) 7.1 10 ^3/uL (1.6-8.6); Neutrophils % (auto) 85.8 % (37.0-80.0); Nucleated Red Blood Cells % 0.5 %; Red Blood Cells 2.71 10^6/uL (4.5-5.90); White Blood Cell 8.2 10^3/uL (4.4-10.8)
[2020-04-26] MEDS: ALBUTEROL SULF 2.5 MG/0.5ML(0.5%) NEB SOLN NEB SCH ×6 (02:34→22:31)
[2020-04-26 03:40] LABS: Basophils # (auto) 0 10 ^3/uL (0-0.2); Eosinophils # (auto) 0.1 10 ^3/uL (0-0.8); Hemoglobin 7.4 g/dL (13.5-17.5); Monocytes # (auto) 0.6 10 ^3/uL (0-1.3); Monocytes % (auto) 7.3 % (0.0-12.0)
[2020-04-26 03:42] LABS: Basophils % (auto) 0.3 % (0.0-2.0); Eosinophils % (auto) 0.8 % (0.0-7.0); Hematocrit 21.7 % (41.0-53.0); Lymphocytes # (auto) 0.5 10 ^3/uL (0.4-5.4); Lymphocytes % (auto) 6.6 % (10.0-50.0); Mean Corpuscular Hemoglobin 29.7 pg (28.0-32.0); Mean Corpuscular Volume 87.4 fL (80.0-100.0); Neutrophils # (auto) 6.9 10 ^3/uL (1.6-8.6); Nucleated Red Blood Cells % 0.3 %; Platelet Count (auto) 60 10^3/uL (140-450); Red Blood Cells 2.49 10^6/uL (4.5-5.90); Red Cell Distribution Width 19.2 % (11.8-14.3); White Blood Cell 8.1 10^3/uL (4.4-10.8)
[2020-04-26 03:57] LABS: Albumin 1.1 g/dL (3.4-5.0); Calcium 6.6 mg/dL (8.5-10.1); Potassium 3.3 mmol/L (3.5-5.1)
[2020-04-26 03:58] LABS: BUN/Creatinine Ratio 124.3
[2020-04-26 04:02] LABS: Bilirubin, Total 0.3 mg/dL (0.2-1.0); Total Protein 3.3 g/dL (6.4-8.2)
[2020-04-26] MEDS: InsuLIN REG 1unit/0.01ml Soln (100units/ml) SC SCH ×4 (06:11→23:58)
[2020-04-26] MEDS: SUCRALFATE 1 GM/10 ML ORAL SUSP PO SCH ×4 (06:28→22:00)
[2020-04-26] MEDS: LEVOTHYROXINE SODIUM 25 MCG TAB PO SCH (06:28)
[2020-04-26] MEDS: AMIODARONE HCL 200 MG TAB PO SCH (10:00)
[2020-04-26] MEDS: OXYBUTYNIN CHL 5 MG TAB PO SCH (10:00)
[2020-04-26] MEDS ORDERED: POTASSIUM CHL 20MEQ/100ML 100 ML IV ONE (10:30)
[2020-04-26 11:53] LABS: Basophils # (auto) 0 10 ^3/uL (0-0.2); Eosinophils # (auto) 0.1 10 ^3/uL (0-0.8); Eosinophils % (auto) 1.5 % (0.0-7.0); Lymphocytes # (auto) 0.3 10 ^3/uL (0.4-5.4); Monocytes # (auto) 0.5 10 ^3/uL (0-1.3); Monocytes % (auto) 6.9 % (0.0-12.0); Neutrophils # (auto) 6.2 10 ^3/uL (1.6-8.6); White Blood Cell 7.1 10^3/uL (4.4-10.8)
[2020-04-26 11:54] LABS: Basophils % (auto) 0.2 % (0.0-2.0); Hematocrit 26.6 % (41.0-53.0); Hemoglobin 8.6 g/dL (13.5-17.5); Lymphocytes % (auto) 4.3 % (10.0-50.0); Mean Corpuscular Hemoglobin 28.8 pg (28.0-32.0); Mean Corpuscular Hgb Conc. 32.4 g/dL (32.0-36.0); Mean Corpuscular Volume 88.8 fL (80.0-100.0); Neutrophils % (auto) 87.1 % (37.0-80.0); Nucleated Red Blood Cells % 0.3 %; Platelet Count (auto) 62 10^3/uL (140-450); Red Blood Cells 2.99 10^6/uL (4.5-5.90); Red Cell Distribution Width 17.8 % (11.8-14.3)
[2020-04-26] MEDS: FERROUS SULFATE 325 MG TAB PO SCH ×3 (12:00→18:00)
[2020-04-26] MEDS: PANTOPRAZOLE 40 MG/10 ML VIAL INJ IV SCH ×2 (12:41→22:05)
[2020-04-26] MEDS: SODIUM CHLOR 0.9% PF (SALINE LOCK) 10ML VIAL/SYR IV SCH ×2 (12:41→22:05)
[2020-04-26] MEDS: GABAPENTIN 100 MG CAP PO SCH ×2 (12:42→22:00)
[2020-04-26] MEDS: NOREPINEPHRINE 8 MG/250ML KIT 250 ML IV SCH (12:45)
[2020-04-26] MEDS: MORPHINE SULF INJ 2 MG/ML SYRINGE 1ML IV PRN ×2 (14:24→19:57)
[2020-04-26] MEDS ORDERED: FUROSEMIDE 20 MG/2 ML VIAL IV PRN (16:15)
[2020-04-26] MEDS: TAMSULOSIN HYDROCHLORIDE 0.4 MG CAP PO SCH (18:00)
[2020-04-26] MEDS ORDERED: TPN PER PHARMACY IV NR ×10 (20:00)
[2020-04-26] MEDS: ATORVASTATIN 20 MG TAB PO SCH (22:00)
[2020-04-26 22:42] LABS: Hemoglobin 7.7 g/dL (13.5-17.5)
[2020-04-26 22:44] LABS: Hematocrit 23.2 % (41.0-53.0)
[2020-04-27] MEDS: MORPHINE SULF INJ 2 MG/ML SYRINGE 1ML IV PRN ×5 (00:58→18:57)
[2020-04-27] MEDS: ALBUTEROL SULF 2.5 MG/0.5ML(0.5%) NEB SOLN NEB SCH ×3 (02:22→11:30)
[2020-04-27 04:00] VITALS: BP 101/37
[2020-04-27 04:05] LABS: Hemoglobin 7.3 g/dL (13.5-17.5)
[2020-04-27 04:08] LABS: Hematocrit 21.8 % (41.0-53.0)
[2020-04-27 04:51] LABS: Albumin 1.1 g/dL (3.4-5.0); BUN/Creatinine Ratio 102.9; Calcium 6.7 mg/dL (8.5-10.1); Potassium 3.2 mmol/L (3.5-5.1)
[2020-04-27 04:57] LABS: Bilirubin, Total 0.4 mg/dL (0.2-1.0); Phosphorus 2.6 mg/dL (2.5-4.90); Total Protein 3.6 g/dL (6.4-8.2)
[2020-04-27] MEDS: InsuLIN REG 1unit/0.01ml Soln (100units/ml) SC SCH ×4 (06:00→23:04)
[2020-04-27] MEDS: LEVOTHYROXINE SODIUM 25 MCG TAB PO SCH (06:21)
[2020-04-27] MEDS: SUCRALFATE 1 GM/10 ML ORAL SUSP PO SCH ×4 (06:21→21:17)
[2020-04-27] MEDS: ACCU-CHEK COMFORT CURVE STRIP VI SCH ×4 (06:21→23:04)
[2020-04-27 08:00] VITALS: BP 109/41
[2020-04-27] MEDS: FERROUS SULFATE 325 MG TAB PO SCH ×3 (08:00→18:20)
[2020-04-27] MEDS: OXYBUTYNIN CHL 5 MG TAB PO SCH (10:00)
[2020-04-27] MEDS: GABAPENTIN 100 MG CAP PO SCH ×2 (10:00→21:18)
[2020-04-27] MEDS: AMIODARONE HCL 200 MG TAB PO SCH (10:00)
[2020-04-27] MEDS: SODIUM CHLOR 0.9% PF (SALINE LOCK) 10ML VIAL/SYR IV SCH ×2 (10:00→21:16)
[2020-04-27] MEDS: PANTOPRAZOLE 40 MG/10 ML VIAL INJ IV SCH ×2 (10:53→21:16)
[2020-04-27] MEDS ORDERED: POTASSIUM PHOSPHATE 44 MEQ in D5W 5% 250 ML IV ONE (11:00)
[2020-04-27 11:50] VITALS: BP 111/47
[2020-04-27] MEDS: NOREPINEPHRINE 8 MG/250ML KIT 250 ML IV SCH (12:23)
[2020-04-27 14:15] LABS: Hematocrit 22.7 % (41.0-53.0); Hemoglobin 7.5 g/dL (13.5-17.5)
[2020-04-27 15:49] VITALS: BP 131/44
[2020-04-27] MEDS: TAMSULOSIN HYDROCHLORIDE 0.4 MG CAP PO SCH (18:20)
[2020-04-27] MEDS: ALBUTEROL SULF 2.5 MG/0.5ML(0.5%) NEB SOLN NEB PRN (18:24)
[2020-04-27 20:00] VITALS: BP 108/38
[2020-04-27] MEDS ORDERED: TPN PER PHARMACY IV NR ×10 (20:00)
[2020-04-27] MEDS: ATORVASTATIN 20 MG TAB PO SCH (21:18)
[2020-04-27 23:06] LABS: Hematocrit 22.6 % (41.0-53.0); Hemoglobin 7.2 g/dL (13.5-17.5)
[2020-04-27] MEDS: DEXTROSE (50%) 50ML SYRG IV SCH (23:06)
[2020-04-28 00:08] VITALS: BP 97/41
[2020-04-28] MEDS: DEXTROSE (50%) 50ML SYRG IV SCH (03:35)
[2020-04-28 04:00] VITALS: BP 104/41
[2020-04-28 04:54] LABS: Hematocrit 23.4 % (41.0-53.0); Hemoglobin 7.7 g/dL (13.5-17.5)
[2020-04-28 05:11] LABS: Albumin 1.2 g/dL (3.4-5.0); Calcium 6.9 mg/dL (8.5-10.1); Magnesium 2.4 mg/dL (1.6-2.6); Potassium 3.8 mmol/L (3.5-5.1)
[2020-04-28 05:15] LABS: BUN/Creatinine Ratio 80.6; Bilirubin, Total 0.3 mg/dL (0.2-1.0); Phosphorus 3.5 mg/dL (2.5-4.90); Total Protein 4.1 g/dL (6.4-8.2)
[2020-04-28] MEDS: InsuLIN REG 1unit/0.01ml Soln (100units/ml) SC SCH ×3 (06:00→17:23)
[2020-04-28] MEDS: ACCU-CHEK COMFORT CURVE STRIP VI SCH ×3 (06:23→17:11)
[2020-04-28] MEDS: LEVOTHYROXINE SODIUM 25 MCG TAB PO SCH (06:39)
[2020-04-28] MEDS: SUCRALFATE 1 GM/10 ML ORAL SUSP PO SCH ×4 (06:39→22:12)
[2020-04-28] MEDS: D5W/SOD CHL 0.45% 1,000 ML IV SCH ×2 (07:48→23:40)
[2020-04-28 08:00] VITALS: BP 119/44
[2020-04-28] MEDS: FERROUS SULFATE 325 MG TAB PO SCH ×3 (08:12→17:23)
[2020-04-28] MEDS: MORPHINE SULF INJ 2 MG/ML SYRINGE 1ML IV PRN (08:22)
[2020-04-28] MEDS: SODIUM CHLOR 0.9% PF (SALINE LOCK) 10ML VIAL/SYR IV SCH ×2 (10:00→22:12)
[2020-04-28] MEDS: OXYBUTYNIN CHL 5 MG TAB PO SCH (11:03)
[2020-04-28] MEDS: AMIODARONE HCL 200 MG TAB PO SCH (11:03)
[2020-04-28] MEDS: PANTOPRAZOLE 40 MG/10 ML VIAL INJ IV SCH ×2 (11:03→22:11)
[2020-04-28] MEDS: GABAPENTIN 100 MG CAP PO SCH ×2 (11:04→22:12)
[2020-04-28] MEDS: NOREPINEPHRINE 8 MG/250ML KIT 250 ML IV SCH (11:17)
[2020-04-28 11:46] VITALS: BP 95/41
[2020-04-28] MEDS: ALBUTEROL SULF 2.5 MG/0.5ML(0.5%) NEB SOLN NEB PRN ×2 (13:44→22:41)
[2020-04-28] MEDS: HYDROcodone-ACET 5/325MG TAB PO PRN (14:10)
[2020-04-28 15:55] VITALS: BP 91/40
[2020-04-28] MEDS: TAMSULOSIN HYDROCHLORIDE 0.4 MG CAP PO SCH (17:23)
[2020-04-28 20:00] VITALS: BP 83/32
[2020-04-28] MEDS ORDERED: TPN PER PHARMACY IV NR ×9 (20:00)
[2020-04-28 22:00] LABS: Hematocrit 22.8 % (41.0-53.0); Hemoglobin 7.5 g/dL (13.5-17.5)
[2020-04-28] MEDS: ATORVASTATIN 20 MG TAB PO SCH (22:12)
[2020-04-29] VITALS (7 sets, daily range): BP systolic 87–115; BP diastolic 33–52
[2020-04-29] MEDS: MORPHINE SULF INJ 2 MG/ML SYRINGE 1ML IV PRN (01:34)
[2020-04-29 06:00] LABS: Albumin 1.1 g/dL (3.4-5.0); Calcium 6.9 mg/dL (8.5-10.1); Magnesium 2.1 mg/dL (1.6-2.6); Potassium 3.7 mmol/L (3.5-5.1)
[2020-04-29] MEDS: InsuLIN REG 1unit/0.01ml Soln (100units/ml) SC SCH ×4 (06:00→17:15)
[2020-04-29] MEDS: ACCU-CHEK COMFORT CURVE STRIP VI SCH ×4 (06:00→17:15)
[2020-04-29 06:03] LABS: BUN/Creatinine Ratio 47.8; Bilirubin, Total 0.4 mg/dL (0.2-1.0); Phosphorus 2.9 mg/dL (2.5-4.90)
[2020-04-29] MEDS: ALBUTEROL SULF 2.5 MG/0.5ML(0.5%) NEB SOLN NEB PRN ×2 (06:35→18:54)
[2020-04-29] MEDS: LEVOTHYROXINE SODIUM 25 MCG TAB PO SCH (07:09)
[2020-04-29] MEDS: SUCRALFATE 1 GM/10 ML ORAL SUSP PO SCH ×4 (07:10→22:33)
[2020-04-29 07:31] LABS: Hemoglobin 7.2 g/dL (13.5-17.5)
[2020-04-29 07:33] LABS: Hematocrit 22.1 % (41.0-53.0)
[2020-04-29] MEDS: OXYBUTYNIN CHL 5 MG TAB PO SCH (10:02)
[2020-04-29] MEDS: GABAPENTIN 100 MG CAP PO SCH ×2 (10:02→22:34)
[2020-04-29] MEDS: FERROUS SULFATE 325 MG TAB PO SCH ×3 (10:02→17:18)
[2020-04-29] MEDS: AMIODARONE HCL 200 MG TAB PO SCH (10:02)
[2020-04-29] MEDS: PANTOPRAZOLE 40 MG/10 ML VIAL INJ IV SCH ×2 (10:03→22:33)
[2020-04-29] MEDS: SODIUM CHLOR 0.9% PF (SALINE LOCK) 10ML VIAL/SYR IV SCH ×2 (10:03→22:35)
[2020-04-29] MEDS: NOREPINEPHRINE 8 MG/250ML KIT 250 ML IV SCH (12:02)
[2020-04-29] MEDS: HYDROcodone-ACET 5/325MG TAB PO PRN (14:12)
[2020-04-29] MEDS: TAMSULOSIN HYDROCHLORIDE 0.4 MG CAP PO SCH (17:18)
[2020-04-29] MEDS ORDERED: TPN PER PHARMACY IV NR ×10 (20:00)
[2020-04-29] MEDS ORDERED: ALBUMIN 25% 100 ML IV ONE (21:45)
[2020-04-29 22:08] LABS: Hemoglobin 7.4 g/dL (13.5-17.5)
[2020-04-29] MEDS: ATORVASTATIN 20 MG TAB PO SCH (22:33)
[2020-04-30] MEDS: ACCU-CHEK COMFORT CURVE STRIP VI SCH ×5 (00:08→23:59)
[2020-04-30] MEDS: InsuLIN REG 1unit/0.01ml Soln (100units/ml) SC SCH ×4 (00:09→18:00)
[2020-04-30] MEDS: oxyCODONE HCL 5MG TAB PO PRN ×3 (00:44→11:25)
[2020-04-30] MEDS: OXYCODONE W/ ACETAMINOPHEN 5/325MG TABLET PO PRN ×3 (00:45→11:25)
[2020-04-30] MEDS: ALBUTEROL SULF 2.5 MG/0.5ML(0.5%) NEB SOLN NEB PRN ×4 (01:46→19:07)
[2020-04-30 04:00] VITALS: BP_SYST 101; BP_SYST 102; BP_DIAS 45
[2020-04-30] MEDS: LEVOTHYROXINE SODIUM 25 MCG TAB PO SCH (05:35)
[2020-04-30] MEDS: SUCRALFATE 1 GM/10 ML ORAL SUSP PO SCH ×4 (05:38→22:22)
[2020-04-30 06:55] LABS: Potassium 3.5 mmol/L (3.5-5.1)
[2020-04-30 07:05] LABS: Albumin 1.6 g/dL (3.4-5.0); BUN/Creatinine Ratio 51.4; Bilirubin, Total 0.5 mg/dL (0.2-1.0); Calcium 7.3 mg/dL (8.5-10.1); Magnesium 2.3 mg/dL (1.6-2.6); Phosphorus 2.6 mg/dL (2.5-4.90); Total Protein 4.4 g/dL (6.4-8.2)
[2020-04-30 07:59] LABS: Basophils # (auto) 0 10 ^3/uL (0-0.2); Hemoglobin 7.2 g/dL (13.5-17.5); Lymphocytes # (auto) 0.3 10 ^3/uL (0.4-5.4); Monocytes # (auto) 0.7 10 ^3/uL (0-1.3); Neutrophils # (auto) 4.9 10 ^3/uL (1.6-8.6)
[2020-04-30 08:00] VITALS: BP 110/38
[2020-04-30 08:00] LABS: Basophils % (auto) 0.3 % (0.0-2.0); Eosinophils # (auto) 0.2 10 ^3/uL (0-0.8); Eosinophils % (auto) 2.5 % (0.0-7.0); Hematocrit 22.1 % (41.0-53.0); Lymphocytes % (auto) 4.8 % (10.0-50.0); Mean Corpuscular Hemoglobin 29.7 pg (28.0-32.0); Mean Corpuscular Hgb Conc. 32.5 g/dL (32.0-36.0); Mean Corpuscular Volume 91.4 fL (80.0-100.0); Monocytes % (auto) 11.4 % (0.0-12.0); Platelet Count (auto) 137 10^3/uL (140-450); Red Blood Cells 2.42 10^6/uL (4.5-5.90); White Blood Cell 6.1 10^3/uL (4.4-10.8)
[2020-04-30 08:03] LABS: Red Cell Distribution Width 21.3 % (11.8-14.3)
[2020-04-30] MEDS: SODIUM CHLOR 0.9% PF (SALINE LOCK) 10ML VIAL/SYR IV SCH ×2 (09:44→22:22)
[2020-04-30] MEDS: PANTOPRAZOLE 40 MG/10 ML VIAL INJ IV SCH ×2 (09:59→22:22)
[2020-04-30] MEDS: FERROUS SULFATE 325 MG TAB PO SCH ×3 (09:59→17:48)
[2020-04-30] MEDS: GABAPENTIN 100 MG CAP PO SCH ×2 (09:59→22:22)
[2020-04-30] MEDS: OXYBUTYNIN CHL 5 MG TAB PO SCH (09:59)
[2020-04-30] MEDS: AMIODARONE HCL 200 MG TAB PO SCH (10:00)
[2020-04-30 10:34] LABS: Hematocrit 21.3 % (41.0-53.0)
[2020-04-30 12:00] VITALS: BP 106/45
[2020-04-30 17:00] VITALS: BP 99/44
[2020-04-30] MEDS: TAMSULOSIN HYDROCHLORIDE 0.4 MG CAP PO SCH (17:48)
[2020-04-30] MEDS: MORPHINE SULF INJ 2 MG/ML SYRINGE 1ML IV PRN (18:16)
[2020-04-30] MEDS ORDERED: TPN PER PHARMACY IV NR ×10 (20:00)
[2020-04-30 21:04] VITALS: BP 136/71
[2020-04-30] MEDS: ATORVASTATIN 20 MG TAB PO SCH (22:22)
[2020-04-30 22:42] LABS: Hemoglobin 7.4 g/dL (13.5-17.5)
[2020-04-30 22:44] LABS: Hematocrit 23.2 % (41.0-53.0)
[2020-05-01] MEDS: oxyCODONE HCL 5MG TAB PO PRN ×2 (00:28→05:00)
[2020-05-01] MEDS: OXYCODONE W/ ACETAMINOPHEN 5/325MG TABLET PO PRN ×2 (00:28→05:00)
[2020-05-01] MEDS: ALBUTEROL SULF 2.5 MG/0.5ML(0.5%) NEB SOLN NEB PRN ×5 (00:49→19:40)
[2020-05-01 05:28] VITALS: BP 132/94
[2020-05-01] MEDS: MORPHINE SULF INJ 2 MG/ML SYRINGE 1ML IV PRN ×3 (06:14→20:07)
[2020-05-01] MEDS: ACCU-CHEK COMFORT CURVE STRIP VI SCH ×3 (06:23→17:01)
[2020-05-01] MEDS: InsuLIN REG 1unit/0.01ml Soln (100units/ml) SC SCH ×4 (06:24→18:00)
[2020-05-01] MEDS: LEVOTHYROXINE SODIUM 25 MCG TAB PO SCH (06:26)
[2020-05-01] MEDS: SUCRALFATE 1 GM/10 ML ORAL SUSP PO SCH ×4 (06:26→22:16)
[2020-05-01 07:29] LABS: Potassium 4.1 mmol/L (3.5-5.1)
[2020-05-01 07:37] LABS: Albumin 1.7 g/dL (3.4-5.0); BUN/Creatinine Ratio 38.3; Bilirubin, Total 0.3 mg/dL (0.2-1.0); Calcium 7.4 mg/dL (8.5-10.1); Magnesium 2.2 mg/dL (1.6-2.6); Pre Albumin 7.6 mg/dL (20.0-40.0); Total Protein 4.8 g/dL (6.4-8.2)
[2020-05-01] MEDS: FERROUS SULFATE 325 MG TAB PO SCH ×3 (08:46→18:13)
[2020-05-01 09:00] VITALS: BP 143/64
[2020-05-01] MEDS: SODIUM CHLOR 0.9% PF (SALINE LOCK) 10ML VIAL/SYR IV SCH ×2 (10:00→22:16)
[2020-05-01 10:29] LABS: Hematocrit 25.1 % (41.0-53.0); Hemoglobin 7.9 g/dL (13.5-17.5)
[2020-05-01] MEDS: OXYBUTYNIN CHL 5 MG TAB PO SCH (10:59)
[2020-05-01] MEDS: PANTOPRAZOLE 40 MG/10 ML VIAL INJ IV SCH ×2 (10:59→22:16)
[2020-05-01] MEDS: AMIODARONE HCL 200 MG TAB PO SCH (11:00)
[2020-05-01] MEDS: GABAPENTIN 100 MG CAP PO SCH ×2 (11:00→22:16)
[2020-05-01 13:00] VITALS: BP 125/68
[2020-05-01 17:00] VITALS: BP 113/55
[2020-05-01] MEDS: TAMSULOSIN HYDROCHLORIDE 0.4 MG CAP PO SCH (18:13)
[2020-05-01] MEDS ORDERED: TPN PER PHARMACY IV NR ×10 (20:00)
[2020-05-01 22:00] VITALS: BP 109/58
[2020-05-01] MEDS: ATORVASTATIN 20 MG TAB PO SCH (22:15)
[2020-05-01 22:18] LABS: Hematocrit 24.4 % (41.0-53.0); Hemoglobin 7.9 g/dL (13.5-17.5)
[2020-05-02] MEDS: ACCU-CHEK COMFORT CURVE STRIP VI SCH ×3 (00:05→12:53)
[2020-05-02] MEDS: MORPHINE SULF INJ 2 MG/ML SYRINGE 1ML IV PRN (00:07)
[2020-05-02] MEDS: ALBUTEROL SULF 2.5 MG/0.5ML(0.5%) NEB SOLN NEB PRN ×2 (00:37→11:05)
[2020-05-02] MEDS: InsuLIN REG 1unit/0.01ml Soln (100units/ml) SC SCH ×3 (00:45→12:56)
[2020-05-02 05:00] VITALS: BP 120/67
[2020-05-02] MEDS: LEVOTHYROXINE SODIUM 25 MCG TAB PO SCH ×2 (06:41→06:51)
[2020-05-02] MEDS: SUCRALFATE 1 GM/10 ML ORAL SUSP PO SCH (06:41)
[2020-05-02 07:00] LABS: Potassium 4.2 mmol/L (3.5-5.1)
[2020-05-02 07:06] LABS: Albumin 1.7 g/dL (3.4-5.0); Bilirubin, Total 0.3 mg/dL (0.2-1.0); Calcium 7.4 mg/dL (8.5-10.1); Total Protein 5.3 g/dL (6.4-8.2)
[2020-05-02 09:24] VITALS: BP 125/64
[2020-05-02] MEDS: SODIUM CHLOR 0.9% PF (SALINE LOCK) 10ML VIAL/SYR IV SCH (09:40)
[2020-05-02 09:54] LABS: Hematocrit 24.9 % (41.0-53.0); Hemoglobin 7.8 g/dL (13.5-17.5)
[2020-05-02] MEDS: FERROUS SULFATE 325 MG TAB PO SCH ×2 (10:18→12:09)
[2020-05-02] MEDS: AMIODARONE HCL 200 MG TAB PO SCH (10:18)
[2020-05-02] MEDS: OXYBUTYNIN CHL 5 MG TAB PO SCH (10:18)
[2020-05-02] MEDS: GABAPENTIN 100 MG CAP PO SCH (10:18)
[2020-05-02] MEDS: PANTOPRAZOLE 40 MG/10 ML VIAL INJ IV SCH (10:18)
[2020-05-02 12:59] VITALS: BP 102/48
[2020-05-02 13:14] VITALS: BP 102/51
[2020-05-02] MEDS ORDERED: TPN PER PHARMACY IV NR ×10 (20:00)
== END 2020-05-02 13:50 | DRG 356 ==
LOC: ER 09:26 → EDBD 09:26 → TELE 09:27 → DOU IN ICU 04-09 17:18 → TELE-CENTR 04-21 14:24 → DOU IN ICU 04-25 13:56 → TELE-WESTW 04-30 15:03
PROVIDERS: ADMIT Internal Medicine; ATTEND Internal Medicine
PROC: 30233N1 Transfusion of Nonautologous Red Blood Cells into Peripheral Vein, Percutaneous Approach (ICD-10-PCS; 2020-04-08)
PROC: 0W3P8ZZ Control Bleeding in Gastrointestinal Tract, Via Natural or Artificial Opening Endoscopic (ICD-10-PCS; 2020-04-10)
PROC: 04L33DZ Occlusion of Hepatic Artery with Intraluminal Device, Percutaneous Approach (ICD-10-PCS; principal; 2020-04-11)
PROC: B41FYZZ Fluoroscopy of Right Lower Extremity Arteries using Other Contrast (ICD-10-PCS; 2020-04-11)
PROC: B414YZZ Fluoroscopy of Superior Mesenteric Artery using Other Contrast (ICD-10-PCS; 2020-04-11)
PROC: B410YZZ Fluoroscopy of Abdominal Aorta using Other Contrast (ICD-10-PCS; 2020-04-11)
PROC: B412YZZ Fluoroscopy of Hepatic Artery using Other Contrast (ICD-10-PCS; 2020-04-11)
PROC: 02HV33Z Insertion of Infusion Device into Superior Vena Cava, Percutaneous Approach (ICD-10-PCS; 2020-04-13)
PROC: 30233K1 Transfusion of Nonautologous Frozen Plasma into Peripheral Vein, Percutaneous Approach (ICD-10-PCS; 2020-04-13)
PROC: 0DJ08ZZ Inspection of Upper Intestinal Tract, Via Natural or Artificial Opening Endoscopic (ICD-10-PCS; 2020-04-14)
PROC: 0DJ08ZZ Inspection of Upper Intestinal Tract, Via Natural or Artificial Opening Endoscopic (ICD-10-PCS; 2020-04-19)
PROC: 0DJD8ZZ Inspection of Lower Intestinal Tract, Via Natural or Artificial Opening Endoscopic (ICD-10-PCS; 2020-04-19)
PROC: 30233R1 Transfusion of Nonautologous Platelets into Peripheral Vein, Percutaneous Approach (ICD-10-PCS; 2020-04-23)
DX: K26.4 Chronic or unspecified duodenal ulcer with hemorrhage (principal); R57.8 Other shock; E43 Unspecified severe protein-calorie malnutrition; J96.01 Acute respiratory failure with hypoxia; R64 Cachexia; I50.22 Chronic systolic (congestive) heart failure; J84.9 Interstitial pulmonary disease, unspecified; D68.9 Coagulation defect, unspecified; I42.9 Cardiomyopathy, unspecified; D62 Acute posthemorrhagic anemia; J91.8 Pleural effusion in other conditions classified elsewhere; J98.11 Atelectasis; Z68.1 Body mass index [BMI] 19.9 or less, adult; I48.91 Unspecified atrial fibrillation; K29.71 Gastritis, unspecified, with bleeding; K31.811 Angiodysplasia of stomach and duodenum with bleeding; Z20.828 Contact with and (suspected) exposure to other viral communicable diseases; E78.5 Hyperlipidemia, unspecified; D69.59 Other secondary thrombocytopenia; E11.65 Type 2 diabetes mellitus with hyperglycemia; I11.0 Hypertensive heart disease with heart failure; K31.9 Disease of stomach and duodenum, unspecified; J44.9 Chronic obstructive pulmonary disease, unspecified; E78.00 Pure hypercholesterolemia, unspecified; E11.42 Type 2 diabetes mellitus with diabetic polyneuropathy; E03.9 Hypothyroidism, unspecified; N40.0 Benign prostatic hyperplasia without lower urinary tract symptoms; Z90.89 Acquired absence of other organs; Z79.899 Other long term (current) drug therapy
CPT/HCPCS: 36415; 36430; 71045; 76937; 78278; 80048; 80053; 82040; 82150; 82270; 82378; 82607; 82728; 82746; 82962; 83036; 83540; 83550; 83615; 83690; 83735; 84100; 84443; 84478; 84484; 85007; 85014; 85018; 85025; 85027; 85045; 85362; 85610; 85652; 85730; 86141; 86677; 86703; 86803; 86850; 86880; 86900; 86901; 86920; 87081; 87340; 92610; 93005; 93971; 94640; 97110; 97163; 97530; 99152; 99153; A9560; C1889; C9113; G0378; J1642; J1815; J2250; J2405; J3480; J7060; P9047; Q9967